=== PATIENT | male | born 1980 | race Caucasian/White ===

== ENCOUNTER 2017-08-25 17:14 | Inpatient (IN) | payer BC ==
[~2017-08-25] VITALS: Ht 180.3 cm; Wt 59.7 kg
[~2017-08-25 17:14] MED LIST: CIPR500T4 PO; HYDR-3533 PO; LACO100 PO; LORA1TAB PO; OXCA300 PO
[2017-08-25 17:17] VITALS: BP 122/64; PULSE 81; RESP 18; TEMP 99.6; O2SAT 98
[2017-08-25] MEDS ORDERED: MANNITOL 12.5 GM/50 ML VIAL IV ONE ×2 (17:30→18:00)
[2017-08-25] MEDS ORDERED: DEXAMETHASONE SOD PHOS 4 MG/ML VIAL IV PUSH ONE (17:30)
[2017-08-25] MEDS ORDERED: SODIUM CHLORIDE 0.9% FLUSH 10 ML FLUSH IV FLUSH PRN ×2 (17:30→18:00)
--- NOTE | 2017-08-25 17:48 | PD ---
HPI . Brain mass Chief Complaint: Neuro Symptoms/ Deficits Time Seen by Provider: 17:22 Travel History International Travel<30 days: No Contact w/Intl Traveler<30days: No Traveled to known affect area: No History of Present Illness HPI This patient was brought to the emergency department by Dr. Workman' regulatory assistant for a brain mass. History is obtained from the patient's parents. The patient had brain cancer in 2003 which was successfully treated with chemotherapy and radiation therapy. His mother reports that he has been cancer free for the last 3-1/2 years. Over the course of the last 6 weeks, he has had progressively worsening symptoms including ataxic gait, slurred speech, right facial droop. He had an MRI done as an out patient on 08/11. The MRI shows a new, large extra-axial mass in the left frontal and middle cranial fossa. The patient was seen by Dr. Workman today for a routine appointment. Dr. Workman sent the patient directly to the emergency department for emergent admission to the [facility] per the water vessel captain. He reports that he will see the patient as a sustainable design consultant. Onset of symptoms was about 6 weeks ago. Progression has been gradual with acute worsening of symptoms over the last several days. No known modifying factors. Context is previous brain cancer. PFSH Past Medical History Anxiety: Yes Depression: Yes Cancer: Yes (h/o melanoma which was removed LEFT UPPER CHEST) Cardiovascular Problems: No Diabetes: No Diminished Hearing: Yes Endocrine: No Genitourinary: No Hepatitis: No Hiatal Hernia: No Immune Disorder: No Musculoskeletal: Yes (two knee surgeries in right knee) Neurologic: Yes (seizures occ in the morning, partial,difficulty with balance ) Psychiatric: No Reproductive: No Respiratory: No Immunizations Current: Yes Seizures: Yes Thyroid Disease: No ?: Not Past Surgical History Abdominal Surgery: No AICD: No Body Medical Devices: plates in place for crani,metal in r leg Cardiac Surgery: No Ear Surgery: No Eye Surgery: No Joint Replacement: No Neurologic Surgery: Yes (crani l) Oral Surgery: No Pacemaker: No Thoracic Surgery: No Other Surgery: Yes (two knee surgeries, melano skin cancer removed) Social History Alcohol Use: No Tobacco Use: Yes (1 ppd) Substance Use: Yes (Marijuana - rarely) Allergies-Medications (Allergen,Severity, Reaction): Coded Allergies: *MDRO Multi-Drug Resistant Organism (Unverified Adverse Reaction, Unknown , 11/27/15) pt states had mrsa infection under arm from work exposed years ago Reported Meds & Prescriptions Reported Meds & Active Scripts Active Cipro (Ciprofloxacin HCl) 500 Mg Tab 500 Mg PO BID 7 Days Lortab 5 mg/325 mg (Hydrocodone/Acetaminophen 5 mg/325 mg) 1 Tab 1 Tab PO Q6H PRN Reported Vimpat (Lacosamide) 100 Mg Tab 100 Mg PO TID Trileptal 300 Mg Tab (Oxcarbazepine) 300 Mg Tab 300 Mg PO DAILY 30 Days Lorazepam 1 Mg Tab 1 Mg PO BID Review of Systems ROS Limitations: Poor Historian Physical Exam Narrative GENERAL: This is a young appearing man who is very thin and who has apparent right-sided facial droop. SKIN: warm/dry. HEAD: Normocephalic. Atraumatic. EYES: Pupils equal and round. No scleral icterus. No injection or drainage. ENT: No nasal bleeding or discharge. Mucous membranes pink and moist. NECK: Trachea midline. Full range of motion without pain.. CARDIOVASCULAR: Regular rate and rhythm. RESPIRATORY: No accessory muscle use. Clear to auscultation. Breath sounds equal bilaterally. MUSCULOSKELETAL: No obvious deformities. NEUROLOGICAL: On visually inspection, he appears to have right-sided facial droop. However, on direct interrogation of his cranial nerves, they are intact. He does have full and equal muscle strength of his upper extremities. Mental status is altered. He is unable to tell me his name. PSYCHIATRIC: Appropriate mood and affect; insight and judgment normal. Data Data Last Documented VS Vital Signs Date Time Temp Pulse Resp B/P (MAP) Pulse Ox O2 Delivery O2 Flow Rate FiO2 08/25/17 17:52 76 18 119/62 (81) 96 Room Air 08/25/17 17:17 99.6 Orders Orders Complete Blood Count With Diff (08/25/17 17:22) Comprehensive Metabolic Panel (08/25/17 17:22) Ct Brain W/O Iv Contrast(Rout) (08/25/17 17:22) Blood Glucose (08/25/17 17:22) Ecg Monitoring (08/25/17 17:22) Iv Access Insert/Monitor (08/25/17 17:22) Oximetry (08/25/17 17:22) Sodium Chloride 0.9% Flush (Ns Flush) (08/25/17 17:30) Mannitol Inj (Mannitol Inj) (08/25/17 17:30) Dexamethasone Inj (Decadron Inj) (08/25/17 17:30) Admit Order (Ed Use Only) (08/25/17 ) Stock Replenisher / Telemetry DIDI.Q8H (08/25/17 17:55) Vital Signs (Adult) Q4H (08/25/17 17:55) Diet Npo (08/25/17 Dinner) Activity Bed Rest (08/25/17 17:55) Notify Dr: Other (08/25/17 17:55) Labs Laboratory Tests Test 08/25/17 17:30 [facility] Medical Decision Making Medical Screen Exam Complete: Yes Emergency Medical Condition: Yes Differential Diagnosis Differential diagnosis of altered mental status includes but is not limited to infection, electrolyte abnormality, neurological event, intoxication Narrative Course This patient presented to us from Dr. Workman office for evaluation and treatment of a new brain mass. He has a history of brain cancer and has been cancer free for the last 3 to half years. He has had progressively worsening symptoms for the last 6 weeks. He had an MRI done at an outside facility a couple of weeks ago and was seen Dr. Workman today for routine follow-up. Dr. Workman solve the MRI report and the patient and sent him immediately to us for treatment. Dr. Workman promptly came to the emergency department and has suggested IV mannitol and Decadron which have been ordered. Dr. Workman would like for the patient to be admitted to the [facility]. Critical Care Narrative Aggregate critical care time was 30 minutes. Time to perform other separately billable procedures was not included in the critical care time. My time did not include minutes spent treating any other patients simultaneously or on activities that did not directly contribute to the patient's treatment. The services I provided to this patient were to treat and/or prevent clinically significant deterioration due to altered mental status, brain tumor I provided critical care services requiring my management, as noted below: Chart data review, documentation time, medication orders and management, vital sign assessments/reviewing monitor data, ordering and reviewing lab tests, ordering and interpreting/reviewing x-rays and diagnostic studies, care of the patient and discussion of the patient with the admitting physicians Diagnosis Primary Impression: Intracranial mass Admitting Information Admitting Physician Requests: Admit Condition: Serious Carola Sutherland MD Aug 25, 2017 17:48
[2017-08-25 17:52] VITALS: BP 119/62; PULSE 74; PULSE 76; RESP 18; O2SAT 94; O2SAT 96
--- NOTE | 2017-08-25 17:53 | RADRPT ---
EXAM DATE/TIME: 08/25/2017 17:26 [place] COMPARISON: CT BRAIN W/O CONTRAST, December 16, 2014, 20:37. INDICATIONS : Altered mental status, history of brain cancer. RADIATION DOSE: 56.35 CTDIvol (mGy) MEDICAL HISTORY : Seizures. brain cancer, melanoma SURGICAL HISTORY : Craniotomy. ENCOUNTER: Initial ACUITY: 1 day PAIN SCALE: 0/10 LOCATION: TECHNIQUE: Multiple contiguous axial images were obtained of the head. Using automated exposure control and adjustment of the mA and/or kV according to patient size, radiation dose was kept as low as reasonably achievable to obtain optimal diagnostic quality images. DICOM format image data is av ailable electronically for review and comparison. FINDINGS: There is a large heterogeneous mass measuring approximately 8.3 x 5.2 cm in the left frontoparietal m id convexity is with prominent associated vasogenic edema primarily anteriorly. There is significant mass effect with effacement of the frontal horn of the left lateral ventricle and approximately 2 cm left to right subfalcine shift. Mass extends inferiorly to the middle cranial fossae with encasement of the left anterior basilar cisterns. Ventricles are enlarged bilaterally likely due to mass effect on the third ventricle. Brain stem and cerebellum appear intact. Extracranial structures are intact. There are postsurgical changes of prior left frontal craniotomy. The paranasal sinuses and mastoid ai r cells are clear. CONCLUSION: 1. Large heterogeneous left frontoparietal mid convexity mass measuring 8.3 x 5.2 cm with significant associated mass effect and resultant hydrocephalus, as above. Luc Mcarthur MD on August 25, 2017 at 17:45 Board Certified Radiologist. This report was verified electronically.
[2017-08-25] MEDS ORDERED: CHLORHEXIDINE GLUCONATE 2 % 1 PACK (2 CLOTHS) TOP PRN (18:00)
[2017-08-25] MEDS: DEXAMETHASONE SOD PHOS 4 MG/ML VIAL IV PUSH SCH ×2 (18:00→23:20)
[2017-08-25] MEDS ORDERED: PANTOPRAZOLE SODIUM 40 MG VIAL IV PUSH SCH (18:00)
[2017-08-25] MEDS ORDERED: MISCELLANEOUS NURSING INFORMATION XX SCH (18:00)
[2017-08-25] MEDS ORDERED: RESP: ALBUTEROL 2.5 MG/IPRATROPIUM 0.5 MG NEB (PRN) INH (18:00)
--- NOTE | 2017-08-25 18:07 | PD.CONS ---
HPI Consult Requested By Primary Care Physician Sami Denis, DO History of Present Illness Mr. Yang is a 37-year-old male with history of a brain mass, status post cranotomy. He was diagnosed with a diffuse astrocytoma, WHO grade 2. He had a surgical resection followed by radiation therapy. He had tonic-clonic seizures. He was followed by an oncologist at the [facility] but he never underwent chemotherapy. Her presented with altered mental status, aphasia, and right-sided weakness. He had an MRI of the brain which show a very large mass with mass-effect and severe midline shift. According to his family he is condition is rapidly deteriorating. CT of the brain was obtained. Neurosurgical consultation was requested Review of Systems Not possible due to the patient's aphasia ROS Limitations: Clinical Condition, Altered Mental Status, Speech Impaired Past Family Social History Allergies: Coded Allergies: *MDRO Multi-Drug Resistant Organism (Unverified Adverse Reaction, Unknown , 08/25/17) pt states had mrsa infection under arm from work exposed years ago Past Medical History 1. Skin cancer removed from left chest. 2. B12 deficiency Past Surgical History 1. Excision of skin cancer from left clavicular area. 2. Right knee arthroscopic surgery, twice. 3, craniotomy with resection of astrocytoma 4. Removal of bone flap for infection Family History Apparently both alive and well, one brother is alive and well. He has 1 child. Social History A smoker of a little bit more than half a pack per day for at least 17 years. Occasional alcohol. Physical Exam Vital Signs Vital Signs Date Time Temp Pulse Resp B/P (MAP) Pulse Ox O2 Delivery O2 Flow Rate FiO2 08/25/17 17:52 76 18 119/62 (81) 96 Room Air 08/25/17 17:52 74 18 119/62 (81) 94 Room Air 08/25/17 17:17 99.6 81 18 122/64 (83) 98 Physical Exam Alert, awake. Expressive aphasia Cranial nerve examination: pupils to be equal, round and reactive to light. Extra-ocular movements are intact. right supranuclear facial drop. Gross hearing appears intact. Sternocleidomastoid and trapezius muscles are symmetrical. Other cranial nerves are intact. Neck is soft and supple with a good range of motion without pain. Muscle strength is normal in all muscle groups of his left upper and lower extremities with mild right hemiparesis. Sensory examination is intact to light touch and pin prick in left upper and lower extremities with mild decrease on the righ Deep tendon reflexes are symmetrical in both upper and lower extremities. There is a left plantar flexion response. Cerebellar examination can not be done due to his condition. Lungs. Clear Heart' regular rhythm and rate Skin warm and dry Laboratory Laboratory Tests Test 08/25/17 17:30 Attending Statement neuro checks every 1 hr. I reviewed outside studies.Ct of the brain done at [place] shows evidence of cerebral herniation Large recurrent brain mass presented with progressive neurological deterioration. Although he was primarily diagnosed with a grade 2 astrocytoma, I suspect progression of the malignancy after the radiation therapy. It could very well be a glioblastoma multiforme. The alternatives of treatment have been diagnosed with the family. I did recommend admission to the hospital, treatment with intravenous steroids and intravenous mannitol. Follow-up MRI of the brain is indicated. A consultation to his neurologist, Dr. Tyler Johnson, oncologist, Dr. Gr and radiation oncologist, Dr. Jimmy chandler for a comprehensive evaluation and discuss regarding treatment possibilities. I believe that his prognosis is really poor and I am not sure how much survival will be achieved with further surgery. I had an extensive discussion with the patient and family. They had many questions which I have answered. Pulmonary.. Continue aggressive pulmonary toilette, nasotracheal suction, and breathing treatments with nebulizers. Renal. monitor closely urine output, BUN and creatinine Endocrine. Monitor serial Acu checks and SSI as needed in detail ID monitor for signs of infection Protonix for stress ulcer prophylaxis Samir ospina and SCD's for DVT prophylaxis Aden Workman MD Aug 25, 2017 18:07
[2017-08-25] MEDS ORDERED: LORA1TAB12 PO (18:08)
[2017-08-25] MEDS ORDERED: OXCA600T PO ×2 (18:08)
[2017-08-25] MEDS ORDERED: LUNE1TAB8 PO (18:08)
[2017-08-25] MEDS ORDERED: ONFI20TA (18:08)
[2017-08-25 18:20] LABS: ALT (GPT) 28 U/L (12-78)
[2017-08-25 18:23] LABS: ALKALINE PHOSPHATASE 99 U/L (45-117); TOTAL BILIRUBIN ADULT 0.5 MG/DL (0.2-1.0); TOTAL PROTEIN 8.7 GM/DL (6.4-8.2)
[2017-08-25 18:25] LABS: AUTOMATED NEUTROPHIL # 7.3 TH/MM3 (1.8-7.7); BASOPHIL % 0.2 % (0.0-2.0); EOSINOPHIL % 0.1 % (0.0-4.0); HEMATOCRIT 45.6 % (39.0-51.0); HEMOGLOBIN 15.7 GM/DL (13.0-17.0); LYMPH % 9.4 % (9.0-44.0); LYMPHOCYTE # 0.8 TH/MM3 (1.0-4.8); MEAN CORPUSCULAR HEMOGLOBIN 31.7 PG (27.0-34.0); MEAN CORPUSCULAR HGB CONC 34.5 % (32.0-36.0); MEAN PLATELET VOLUME 9.2 FL (7.0-11.0); MONO % 3.3 % (0.0-8.0); MONOCYTE # 0.3 TH/MM3 (0-0.9); PLATELET COUNT 183 TH/MM3 (150-450); RED BLOOD COUNT 4.95 MIL/MM3 (4.50-5.90); RED CELL DISTRIBUTION WIDTH 12.9 % (11.6-17.2); WHITE BLOOD COUNT 8.4 TH/MM3 (4.0-11.0)
[2017-08-25 18:28] LABS: ALBUMIN 4.7 GM/DL (3.4-5.0); AST (GOT) 23 U/L (15-37); BICARBONATE 28.2 MEQ/L (21.0-32.0); BLOOD UREA NITROGEN 11 MG/DL (7-18); CALCIUM 9.2 MG/DL (8.5-10.1); CHLORIDE 108 MEQ/L (98-107); CREATININE 0.99 MG/DL (0.60-1.30); GLOMERULAR FILTRATION RATE 85 ML/MIN (>89); GLUCOSE,RANDOM 103 MG/DL (74-106); SODIUM (NA) 142 MEQ/L (136-145)
[2017-08-25 19:56] VITALS: BP 119/70; PULSE 68; RESP 20; O2SAT 100
[2017-08-25 20:00] VITALS: O2SAT 95
[2017-08-25] MEDS ORDERED: LORazepam 1 MG TAB PO PRN (20:30)
[2017-08-25] MEDS: SODIUM CHLOR 0.9% 1000 ML INJ 1,000 ML IV SCH (20:30)
--- NOTE | 2017-08-25 20:32 | HHI.HP ---
[facility] Service Critical Care Medicine Primary Care Physician Sami Denis, DO Admission Diagnosis brain tumor Diagnosis: Travel History International Travel<30 Days: No Contact w/Intl Traveler <30 Da: No Traveled to Known Affected Are: No History of Present Illness 37-year-old unfortunate very pleasant male with history of WHO grade 2 astrocytoma, status post craniotomy by Dr. Workman. He had a surgical resection followed by radiation therapy. He was followed by an oncologist at the [facility] but he never underwent chemotherapy. Over the course of the last 6 weeks , he has had progressively worsening symptoms including ataxic gait, slurred speech, right facial droop. He had an MRI done as an out patient on 08/11. The MRI shows a new, large extra-axial mass in the left frontal and middle cranial fossa. According to his family he is condition is rapidly deteriorating. The patient is admitted to surgical ICU with neurosurgical consultation in place. Review of Systems Constitutional: COMPLAINS OF: Fatigue, Dizziness, DENIES: Diaphoretic episodes , Fever, Weight gain, Weight loss, Chills, Change in appetite, Night Sweats Endocrine: DENIES: Heat/cold intolerance, Polydipsia, Polyuria, Polyphagia Eyes: DENIES: Blurred vision, Diplopia, Eye inflammation, Eye pain, Vision loss , Photosensitivity, Double Vision Ears, nose, mouth, throat: DENIES: Tinnitus, Hearing loss, Vertigo, Nasal discharge, Oral lesions, Throat pain, Hoarseness, Ear Pain, Running Nose, Epistaxis, Sinus Pain, Toothache, Odynophagia Respiratory: DENIES: Apneas, Cough, Snoring, Wheezing, Hemoptysis, Sputum production, Shortness of breath Cardiovascular: DENIES: Chest pain, Palpitations, Syncope, Dyspnea on Exertion , PND, Lower Extremity Edema, Orthopnea, Claudication Gastrointestinal: DENIES: Abdominal pain, Black stools, Bloody stools, Constipation, Diarrhea, Nausea, Vomiting, Difficulty Swallowing, Anorexia Genitourinary: DENIES: Sexual dysfunction, Urinary frequency, Urinary incontinence, Urgency, Hematuria, Dysuria, Nocturia, Penile Discharge, Testicular Pain, Testicular Swelling Musculoskeletal: DENIES: Joint pain, Muscle aches, Stiffness, Joint Swelling, Back pain, Neck pain Integumentary: DENIES: Abnormal pigmentation, Nail changes, Pruritus, Rash Hematologic/lymphatic: DENIES: Bruising, Lymphadenopathy Immunologic/allergic: DENIES: Eczema, Urticaria Neurologic: COMPLAINS OF: Abnormal gait, Headache, Localized weakness, Paresthesias, Speech Problems, Poor Balance, DENIES: Seizures, Tremor Psychiatric: DENIES: Anxiety, Confusion, Mood changes, Depression, Hallucinations, Agitation, Suicidal Ideation, Homicidal Ideation, Delusions Past Family Social History Allergies: Coded Allergies: *MDRO Multi-Drug Resistant Organism (Unverified Adverse Reaction, Unknown , 08/25/17) pt states had mrsa infection under arm from work exposed years ago Past Medical History Skin cancer removed from left chest. B12 deficiency [employer] astrocytoma Past Surgical History Excision of skin cancer from left clavicular area. Right knee arthroscopic surgery, twice. Craniotomy with resection of astrocytoma Removal of bone flap for infection Reported Medications Reported Meds & Active Scripts Active Reported Lunesta (Eszopiclone) 1 Mg Tab 1 Mg PO HS PRN Lorazepam 1 Mg Tab 1 Mg PO Q6H PRN Onfi (Clobazam) 20 Mg Tab 20 Mg BID Oxcarbazepine 600 Mg Tab 900 Mg PO DAILY Oxcarbazepine 600 Mg Tab 600 Mg PO BID Active Ordered Medications Current Medications Sodium Chloride (NS Flush) 2 ml UNSCH PRN IV FLUSH FLUSH AFTER USING IV ACCESS ; Start 08/25/17 at 17:30 Mannitol (Mannitol Inj) 25 gm ONCE ONCE IV Last administered on 08/25/17at 17:50 ; Start 08/25/17 at 17:30; Stop 08/25/17 at 17:31; Status DC Dexamethasone Sodium Phosphate (Decadron Inj) 6 mg ONCE ONCE IV PUSH Last administered on 08/25/17at 17:51; Start 08/25/17 at 17:30; Stop 08/25/17 at 17:31; Status DC Dexamethasone Sodium Phosphate (Decadron Inj) 10 mg Q6HR IV PUSH ; Start at 18:00 Mannitol (Mannitol Inj) 25 gm ONCE ONCE IV ; Start 08/25/17 at 18:00; Stop at 18:09; Status DC Mannitol (Mannitol Inj) 25 gm Q6H IV ; Start 08/25/17 at 22:00 Sodium Chloride (NS Flush) 2 ml UNSCH PRN IV FLUSH FLUSH AFTER USING IV ACCESS ; Start 08/25/17 at 18:00 Sodium Chloride (NS Flush) 2 ml BID IV FLUSH ; Start 08/25/17 at 21:00 Pantoprazole Sodium (Protonix Inj) 40 mg DAILY IV PUSH Last administered on 08/25at 18:00; Start 08/25/17 at 18:00 Albuterol/ Ipratropium (Duoneb Neb) 1 ampule Q4HR NEB PRN INH WHEEZING; Start 08/25/17 at 18:00 Miscellaneous Information 1 [id number] XX ; Start 08/25/17 at 18:00 Chlorhexidine Gluconate (Chlorhexidine 2% Cloth) 3 pack Taper DAILY@04 TOP ; Start 08/26/17 at 04:00; Stop 08/22/18 at 03:59 Chlorhexidine Gluconate (Chlorhexidine 2% Cloth) 3 pack UNSCH PRN TOP HYGIENIC CARE; Start 08/25/17 at 18:00 Family History Apparently both parents alive and well, one brother is alive and well. He has 1 child. Social History A smoker of a little bit more than half a pack per day for at least 17 years. Occasional alcohol. No illicit drug abuse. Physical Exam Vital Signs Vital Signs Date Time Temp Pulse Resp B/P (MAP) Pulse Ox O2 Delivery O2 Flow Rate FiO2 08/25/17 19:56 68 20 119/70 (86) 100 Room Air 08/25/17 17:52 76 18 119/62 (81) 96 Room Air 08/25/17 17:52 74 18 119/62 (81) 94 Room Air 08/25/17 17:17 99.6 81 18 122/64 (83) 98 Physical Exam GENERAL: This is a young appearing man who is very thin and who has apparent right-sided facial droop. SKIN: warm/dry. HEAD: Normocephalic. Atraumatic. EYES: Pupils equal and round. No scleral icterus. No injection or drainage. ENT: No nasal bleeding or discharge. Mucous membranes pink and moist. NECK: Trachea midline. Full range of motion without pain.. CARDIOVASCULAR: Regular rate and rhythm. RESPIRATORY: No accessory muscle use. Clear to auscultation. Breath sounds equal bilaterally. MUSCULOSKELETAL: No obvious deformities. NEUROLOGICAL: Right-sided facial droop. Full and equal muscle strength of his upper extremities. Mental status is altered. Laboratory Laboratory Tests Test 08/25/17 17:30 White Blood Count 8.4 Red Blood Count 4.95 Hemoglobin 15.7 Hematocrit 45.6 Mean Corpuscular Volume 92.0 Mean Corpuscular Hemoglobin 31.7 Mean Corpuscular Hemoglobin Concent 34.5 Red Cell Distribution Width 12.9 Platelet Count 183 Mean Platelet Volume 9.2 Neutrophils (%) (Auto) 87.0 Lymphocytes (%) (Auto) 9.4 Monocytes (%) (Auto) 3.3 Eosinophils (%) (Auto) 0.1 Basophils (%) (Auto) 0.2 Neutrophils # (Auto) 7.3 Lymphocytes # (Auto) 0.8 Monocytes # (Auto) 0.3 Eosinophils # (Auto) 0.0 Basophils # (Auto) 0.0 CBC Comment DIFF FINAL Differential Comment Blood Urea Nitrogen 11 Creatinine 0.99 Random Glucose 103 Total Protein 8.7 Albumin 4.7 Calcium Level 9.2 Alkaline Phosphatase 99 Aspartate Amino Transf (AST/SGOT) 23 Alanine Aminotransferase (ALT/SGPT) 28 Total Bilirubin 0.5 Sodium Level 142 Potassium Level 4.0 Chloride Level 108 Carbon Dioxide Level 28.2 Anion Gap 6 Estimat Glomerular Filtration Rate 85 Result Diagram: 08/25/17 1730 08/25/17 173 Imaging Last [address] 08/25/17 1722 Signed Impressions: Service Date/Time: Friday, August 25, 2017 17:26 - CONCLUSION: 1. Large heterogeneous left frontoparietal mid convexity mass measuring 8.3 x 5.2 cm with significant associated mass effect and resultant hydrocephalus, as above. MD Drew Garcia VTE Risk Assessment Wyattrini VTE Risk Assessment: Mod/High Risk (score >= 2) Caprini Risk Assessment Model Point Value = 1 Point Value = 2 Point Value = 3 Point Value = 5 Age 41-60 Minor surgery BMI > 25 kg/m2 Swollen legs Varicose veins or History of unexplained or recurrent spontaneous Oral contraceptives or hormone replacement Sepsis (< 1 month) Serious lung disease, including pneumonia (< 1 month) Abnormal pulmonary function Acute myocardial infarction Congestive heart failure (< 1 month) History of inflammatory bowel disease Medical patient at bed rest Age 61-74 Arthroscopic surgery Major open surgery (> 45 min) Laparoscopic surgery (> 45 min) Malignancy Confined to bed (> 72 hours) Immobilizing plaster cast Central venous access Age >= 75 History of VTE Family history of VTE Factor V Leiden Prothrombin [id number] Lupus anticoagulant Anticardiolipin antibodies Elevated serum homocysteine Heparin-induced thrombocytopenia Other congenital or acquired thrombophilia Stroke (< 1 month) Elective arthroplasty Hip, pelvis, or leg fracture Acute spinal cord injury (< 1 month) Prophylaxis Regimen Total Risk Factor Score Risk Level Prophylaxis Regimen 0-1 Low Early ambulation 2 Moderate Order ONE of the following: *Sequential Compression Device (SCD) *Heparin 5000 units SQ BID 3-4 Higher Order ONE of the following medications: *Heparin 5000 units SQ TID *Enoxaparin/Lovenox 40 mg SQ daily (WT < 150 kg, CrCl > 30 mL/min) *Enoxaparin/Lovenox 30 mg SQ daily (WT < 150 kg, CrCl > 10-29 mL/min) *Enoxaparin/Lovenox 30 mg SQ BID (WT < 150 kg, CrCl > 30 mL/min) AND/OR *Sequential Compression Device (SCD) 5 or more Highest Order ONE of the following medications: *Heparin 5000 units SQ TID (Preferred with Epidurals) *Enoxaparin/Lovenox 40 mg SQ daily (WT < 150 kg, CrCl > 30 mL/min) *Enoxaparin/Lovenox 30 mg SQ daily (WT < 150 kg, CrCl > 10-29 mL/min) *Enoxaparin/Lovenox 30 mg SQ BID (WT < 150 kg, CrCl > 30 mL/min) AND *Sequential Compression Device (SCD) Assessment and Plan Assessment and Plan Large recurrent brain mass -primarily diagnosed with a grade 2 astrocytoma -Now progression of the malignancy most likely glioblastoma multiforme -Decadron -Mannitol -Further management per neurosurgery Dr. Workman, neurologist, Dr. Tyler Johnson, oncologist, Dr. Gr and radiation oncologist, Dr. Marquez Seizure disorder -Trileptal -Clobazam Anxiety -Lorazepam as needed Insomnia -Lunesta DVT GI prophylaxis -Samir's and SCDs -Lovenox -Pepcid Critical Care: The total critical care time was 35 minutes. Time to perform other separately billable procedures was not included in the critical care time. Aureliano Owusu MD Aug 25, 2017 8:32 pm
[2017-08-25] MEDS ORDERED: ACETAMINOPHEN 500 MG CPLT PO PRN (20:45)
[2017-08-25] MEDS ORDERED: ENOXAPARIN SODIUM 40 MG/0.4 ML SYRINGE SQ SCH (21:00)
[2017-08-25] MEDS ORDERED: CLOBAZAM 20 MG SCH (21:00)
[2017-08-25] MEDS: SODIUM CHLORIDE 0.9% FLUSH 10 ML FLUSH IV FLUSH SCH (21:00)
[2017-08-25] MEDS ORDERED: CLOBAZAM 20 MG PO SCH (21:00)
[2017-08-25 21:09] VITALS: BP 115/62; PULSE 69; RESP 20; O2SAT 98
[2017-08-25] MEDS ORDERED: PILL SPLITTER OTHER PRN (21:15)
[2017-08-25] MEDS: CHLORHEXIDINE GLUCONATE 2 % 1 PACK (2 CLOTHS) TOP SCH (21:49)
[2017-08-25] MEDS: MANNITOL 12.5 GM/50 ML VIAL IV SCH (22:39)
[2017-08-25] MEDS: OXcarbazepine 600 MG TAB PO SCH (22:40)
[2017-08-25 23:00] VITALS: PULSE 72
[2017-08-26] VITALS (10 sets, daily range): BP systolic 94–114; BP diastolic 51–69; PULSE 52–70; RESP 18–33; TEMP 98.4–99; O2SAT 96–100
[2017-08-26] MEDS: MANNITOL 12.5 GM/50 ML VIAL IV SCH ×4 (03:33→21:55)
[2017-08-26 03:49] LABS: AUTOMATED NEUTROPHIL # 6.4 TH/MM3 (1.8-7.7); BASOPHIL % 0.2 % (0.0-2.0); HEMOGLOBIN 14.4 GM/DL (13.0-17.0); LYMPH % 11.5 % (9.0-44.0); LYMPHOCYTE # 0.8 TH/MM3 (1.0-4.8); MEAN CORPUSCULAR HEMOGLOBIN 31.5 PG (27.0-34.0); MEAN CORPUSCULAR HGB CONC 34.2 % (32.0-36.0); MEAN PLATELET VOLUME 8.8 FL (7.0-11.0); MONO % 1.8 % (0.0-8.0); MONOCYTE # 0.1 TH/MM3 (0-0.9); NEUT % 86.5 % (16.0-70.0); PLATELET COUNT 161 TH/MM3 (150-450); RED BLOOD COUNT 4.57 MIL/MM3 (4.50-5.90); WHITE BLOOD COUNT 7.4 TH/MM3 (4.0-11.0)
[2017-08-26] MEDS: SODIUM CHLOR 0.9% 1000 ML INJ 1,000 ML IV SCH ×3 (04:30→20:30)
[2017-08-26 04:32] LABS: ALKALINE PHOSPHATASE 90 U/L (45-117); ALT (GPT) 27 U/L (12-78); AST (GOT) 16 U/L (15-37); BICARBONATE 24.6 MEQ/L (21.0-32.0); BLOOD UREA NITROGEN 11 MG/DL (7-18); CALCIUM 8.9 MG/DL (8.5-10.1); CHLORIDE 108 MEQ/L (98-107); CREATININE 0.81 MG/DL (0.60-1.30); GLOMERULAR FILTRATION RATE 107 ML/MIN (>89); GLUCOSE,RANDOM 109 MG/DL (74-106); SODIUM (NA) 142 MEQ/L (136-145); TOTAL BILIRUBIN ADULT 0.6 MG/DL (0.2-1.0); TOTAL PROTEIN 7.7 GM/DL (6.4-8.2)
[2017-08-26] MEDS: DEXAMETHASONE SOD PHOS 4 MG/ML VIAL IV PUSH SCH ×3 (06:20→18:14)
--- NOTE | 2017-08-26 07:49 | HHI.CCPN ---
Subjective Remarks/Hospital Course 37-year-old unfortunate very pleasant male with history of WHO grade 2 astrocytoma, status post craniotomy by Dr. Workman. He had a surgical resection followed by radiation therapy. He was followed by an oncologist at the [facility] but he never underwent chemotherapy. Over the course of the last 6 weeks , he has had progressively worsening symptoms including ataxic gait, slurred speech, right facial droop. He had an MRI done as an out patient on 08/11. The MRI shows a new, large extra-axial mass in the left frontal and middle cranial fossa. According to his family he is condition is rapidly deteriorating. The patient is admitted to surgical ICU with neurosurgical consultation in place. SUBJ 08/26: Lying in bed, breathing comfortably. Persistent right facial droop. Currently receiving IV mannitol, IV Decadron. Mentation is altered, I have ordered EEG. Neurology neurosurgery following. Discussed with oncology Dr. Gr Objective Vital Signs Date Time Temp Pulse Resp B/P (MAP) Pulse Ox O2 Delivery O2 Flow Rate FiO2 08/26/17 07:45 100 08/26/17 04:00 98.6 58 29 105/59 (74) 08/25/17 21:09 Room Air Intake and Output 08/26/17 08/26/17 08/27/17 08:00 16:00 00:00 Intake Total 100 ml Balance 100 ml Result Diagram: 08/26/17 0330 08/26/17 0330 Imaging Last [address] 08/25/17 1722 Signed Impressions: Service Date/Time: Friday, August 25, 2017 17:26 - CONCLUSION: 1. Large heterogeneous left frontoparietal mid convexity mass measuring 8.3 x 5.2 cm with significant associated mass effect and resultant hydrocephalus, as above. Luc Mcarthur MD Objective Remarks GENERAL: This is a young appearing man who is very thin and right-sided facial droop. SKIN: warm/dry. HEAD: Normocephalic. Atraumatic. EYES: Pupils equal and round. No scleral icterus. No injection or drainage. ENT: No nasal bleeding or discharge. R facial droop. NECK: Trachea midline. Full range of motion without pain.. CARDIOVASCULAR: Regular rate and rhythm. RESPIRATORY: No accessory muscle use. Clear to auscultation. Breath sounds equal bilaterally. MUSCULOSKELETAL: No obvious deformities. NEUROLOGICAL: Right-sided facial droop. Full and equal muscle strength of his upper extremities. Mental status is altered, some expressive and receptive aphasia. 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 Workman, neurologist, Dr. Tyler Johnson, oncologist, Dr. Gr and radiation oncologist, Dr. Marquez -Overall prognosis is poor, will discuss debulking surgery with Dr. Workman Seizure disorder -Continue Trileptal, Clobazam -Check EEG -Ativan as needed for seizure Anxiety -Lorazepam as needed Insomnia -Lunesta DVT GI prophylaxis -Samir's and SCDs -Lovenox-hold in anticipation of surgical intervention -Pepcid Critical Care: The total critical care time was 35 minutes. Time to perform other separately billable procedures was not included in the critical care time. Patient is at this time critically ill with very large intracranial mass, he is at risk for fatal herniation. Further multidisciplinary treatment plan is being discussed. Most likely will need debulking surgery Shweta Zuleta MD Aug 26, 2017 07:49
--- NOTE | 2017-08-26 08:15 | PD.CONS ---
History of Present Illness Service Neurology Consult Requested By nsx Reason for Consult brain mass, confusion Primary Care Physician Sami Denis, DO History of Present Illness 37-year-old unfortunate very pleasant male with history of WHO grade 2 astrocytoma, status post craniotomy by Dr. Workman. He had a surgical resection followed by radiation therapy. He was followed by an oncologist at the [facility] per records. has had progressive decline over the past few weeks with possible sz activity. pt has been confused and is a poor historian. hx obtained from chart review. was initially seen in 2013 by nsx and oncology. and has been followed by them since then. underwent partial resection followed by xrt tx. on trileptal and clobazam for sz's. Review of Systems confused. but denies hawkins, vision loss. not reliable Past Family Social History Allergies: Coded Allergies: *MDRO Multi-Drug Resistant Organism (Unverified Adverse Reaction, Unknown , 08/25/17) pt states had mrsa infection under arm from work exposed years ago Past Medical History Skin cancer removed from left chest. B12 deficiency BIT SHARPENER astrocytoma Past Surgical History Excision of skin cancer from left clavicular area. Right knee arthroscopic surgery, twice. Craniotomy with resection of astrocytoma Removal of bone flap for infection Reported Medications Reported Meds & Active Scripts Active Reported Lunesta (Eszopiclone) 1 Mg Tab 1 Mg PO HS PRN Lorazepam 1 Mg Tab 1 Mg PO Q6H PRN Onfi (Clobazam) 20 Mg Tab 20 Mg BID Oxcarbazepine 600 Mg Tab 900 Mg PO DAILY Oxcarbazepine 600 Mg Tab 600 Mg PO BID Family History lives with parents Social History hx of tob use. Occasional alcohol. No illicit drug abuse. Review of Systems All other ROS: ROS reviewed as documented in chart Past Family Social History Allergies: Coded Allergies: *MDRO Multi-Drug Resistant Organism (Unverified Adverse Reaction, Unknown , 08/25/17) pt states had mrsa infection under arm from work exposed years ago Active Ordered Medications Current Medications Medications (Trade) Dose Ordered Sig/Raghav Route Start Time Stop Time Status Last Admin (Decadron Inj) 10 mg Q6HR IV PUSH 08/25/17 18:00 08/26/17 06:20 (Mannitol Inj) 25 gm Q6H IV 08/25/17 22:00 08/26/17 03:33 (NS Flush) 2 ml UNSCH PRN IV FLUSH 08/25/17 18:00 (NS Flush) 2 ml BID IV FLUSH 08/25/17 21:00 (Protonix Inj) 40 mg DAILY IV PUSH 08/25/17 18:00 08/25/17 18:00 (Duoneb Neb) 1 ampule Q4HR NEB PRN INH 08/25/17 18:00 Miscellaneous Information 1 Q361D XX 08/25/17 18:00 (Chlorhexidine 2% Cloth) 3 pack Taper DAILY@04 TOP 08/26/17 04:00 08/22/18 03:59 (Chlorhexidine 2% Cloth) 3 pack UNSCH PRN TOP 08/25/17 18:00 (Lunesta) 1 mg HS PRN PO 08/25/17 21:00 (Ativan) 1 mg Q6H PRN PO 08/25/17 20:30 (Trileptal) 600 mg BID@1500,2100 PO 08/25/17 21:00 08/25/17 22:40 (Trileptal) 900 mg DAILY PO 08/26/17 09:00 Sodium Chloride 1,000 ml @ 125 mls/hr Q8H IV 08/25/17 20:30 08/25/17 20:30 (Lovenox Inj) 40 mg Q24H SQ 08/25/17 21:00 Future Hold 08/25/17 22:40 (Dilaudid Pf Inj) 0.5 mg Q4H PRN IV 08/25/17 20:45 (Tylenol) 500 mg Q4H PRN PO 08/25/17 20:45 (Pill Splitter) 1 ea UNSCH PRN OTHER 08/25/17 21:15 Patient Own Medication PT OWN NARC MED: CLOBAZAM(ON... BID PO 08/26/17 09:00 Exam I&O / VS Vital Signs Date Time Temp Pulse Resp B/P (MAP) Pulse Ox O2 Delivery O2 Flow Rate FiO2 08/26/17 07:45 100 08/26/17 04:00 98.6 58 29 105/59 (74) 97 08/26/17 00:00 99.0 70 23 94/51 (65) 96 08/25/17 23:00 72 08/25/17 21:09 69 20 115/62 (79) 98 Room Air 08/25/17 20:00 95 08/25/17 19:56 68 20 119/70 (86) 100 Room Air 08/25/17 17:52 76 18 119/62 (81) 96 Room Air 08/25/17 17:52 74 18 119/62 (81) 94 Room Air 08/25/17 17:17 99.6 81 18 122/64 (83) 98 Exam Comments alert, mixed aphasia comprehensive> expressive aphasia, not following consistently, strange affect, eomi, mild rt spastic hemiparesis. limited sensory /cereebellar exams Review/Management Diagnosis/Plan: (1) Seizures ICD Codes: R56.9 - Seizures Status: Chronic Plan: no fever. no leukocytosis. no significant abnormalities on bmp f/u eeg check trileptal level enlarging mass can cause sz's. tx for this would be steroids/debulking. he has been started on high dose iv steroids tx of brain mass per onc/nsx d/w ccm follow exam (2) Astrocytoma brain tumor ICD Codes: C71.9 - Astrocytoma brain tumor Status: Chronic Plan: large left hemispheric mass with mass effect nsx following (3) Intracranial mass ICD Codes: R90.0 - Intracranial mass Status: Chronic Khari Bills MD Aug 26, 2017 08:15
[2017-08-26] MEDS: SODIUM CHLORIDE 0.9% FLUSH 10 ML FLUSH IV FLUSH SCH ×2 (09:32→21:54)
[2017-08-26] MEDS: CLOBAZAM 20 MG PO SCH ×2 (09:32→21:00)
[2017-08-26] MEDS: PANTOPRAZOLE SOD 40 MG DELAYED RELEASE TAB PO SCH (09:33)
[2017-08-26] MEDS: OXcarbazepine 600 MG TAB PO SCH ×3 (09:33→21:54)
--- NOTE | 2017-08-26 10:11 | PD.CONS ---
Consult Service Palliative Care Consult Requested By Dr. Zuleta Primary Care Physician Sami Denis, Reason for Consultation a. To assist with evaluation and management of symptoms including:pain, confusion. b. To assist medical decision maker(s) with: better understanding of current medical conditions; weighing benefits/burdens of medical treatment options; making medical treatment decisions. HPI History of Present Illness Patient is a 37-year-old who has a 2014, history of grade 2 astrocytoma diagnosed in 2013, status post surgical resection and radiation therapy. Patient's mother reports that patient had been cancer free for 3-1/2 years, however for the past 6 weeks patient has had worsening symptoms including ataxic gait, slurred speech, right facial droop. Patient had an MRI done as an outpatient on 08/11/2017 which shows a new large extra-axial mass in the left frontal middle cranial fossa. Patient was a neurosurgeon office, and was told to directly go to the emergency department for emergent admission. Patient was admitted to surgical ICU for 08/25/2017 and neurosurgery consult was placed. * Vitals temperature 99.6, pulse is 81, respirations 18, blood pressure is 122/ 64, pulse ox is 98% * WBC 8.4, hemoglobin 15.7, hematocrit is 45.6, platelet is 183 * Sodium is 142, potassium is 4.0, chloride is 108, bicarb is 20.2, BUN is 11, creatinine 0.99 * AST is 23, ALT is 28, alk phos is 99, total protein is 8.4, albumin is 4.7 * Admission shows a large heterogeneous left frontoparietal mid convexity mass measuring 8.3 x 5.2 cm with significant associated mass-effect and resultant hydrocephalus. Neurosurgery evaluated patient and recommend intravenous steroids, intravenous mannitol. Follow up MR I of the brain is indicated. He plays consultation with Dr. Johnson neurologist, Dr. Guerrero oncology, Dr. Bowen radiation oncology, to discuss possibility of treatment. However Dr. Workman believe that patient's prognosis is poor and his H&P from 08/25/2017 indicated "I believe that his prognosis is really poor and I am not sure how much survival will be achieved with further surgery." 08/26/2017-scrap shear operator indicated the patient is lying in bed breathing comfortably with persistent right facial droop. Patient continued to receive IV mannitol and IV Decadron. His mentation is altered and an EEG is ordered. Is suspected that patient's grade 2 astrocytoma has progressed to likely glioblastoma multi-forming. Palliative care was consulted by intensive care to review goals of care with family. Pt had just performed EEG. He is confused, and aphasic. At times able to follow some commands, at other times look at me with a very strangely. Words that he said, make no sense most of the time. Have difficulty answering yes or no answers. He was able to deny pain. I am not able to elicit response to nausea or vomiting. Spoke with pt's Mom Yeni Yang ( who is primary health care surrogate) and Pt' s father Jan Bell (pt's alternate surrogate). Review his clinical condition form 2013, and the dramatic decline he has had the past 6 weeks. Mother is appropriately tearful. Mom has some questions regarding, if they could to ventriculostomy drain, or shunt to relief pressure? They want to know if he is a candidate for further radiation or chemo? I have reviewed with mom the poor prognosis indicated by neurosurgeon and the concern that surgical procedure will more than likely not alter his survival. Mom understands. We review his living will. Mom said, if specilist feels that there is nothing beneficial to offer in terms of treatment, pt per living will would be amenable to transfer to comfort measures. Reviewed code status: for the time being, no intubation, amenable to bipap; Yes to cpr/ acls/ shock until they get their questions answered, if heart decompensates. Function/Cognitive Trajectory past 6 weeks patient has had worsening symptoms including ataxic gait, slurred speech, right facial droop, worsening confusion, ataxia, maybe some difficulty swallowing. Per mom, this all happened in a span of 6 weeks. He has fallen twice, one time while trying to find car keys and he slipped. Review of Systems ROS Limitations: Clinical Condition Past Family Social History Coded Allergies: *MDRO Multi-Drug Resistant Organism (Unverified Adverse Reaction, Unknown , 08/25/17) pt states had mrsa infection under arm from work exposed years ago Past Medical History B12 deficiency Skin cancer removed from left chest Past Surgical History Status post craniotomy and radiation for grade 2 astrocytoma Excision of skin cancer from left clavicular area Right knee arthroscopic surgery 2 Reported Medications Clobazam 20 mg PO BID Oxcarbazepine 600 mg p.o. twice daily Oxcarbazepine 900 mg p.o. daily Ativan 1 mg p.o. every 6 hours as needed anxiety Neulasta 1 mg p.o. nightly as needed insomnia Current Medications Medications (Trade) Dose Ordered Sig/Raghav Route Start Time Stop Time Status Last Admin (Decadron Inj) 10 mg Q6HR IV PUSH 08/25/17 18:00 08/26/17 06:20 (Mannitol Inj) 25 gm Q6H IV 08/25/17 22:00 08/26/17 09:34 (NS Flush) 2 ml UNSCH PRN IV FLUSH 08/25/17 18:00 (NS Flush) 2 ml BID IV FLUSH 08/25/17 21:00 08/26/17 09:32 (Duoneb Neb) 1 ampule Q4HR NEB PRN INH 08/25/17 18:00 Miscellaneous Information 1 Q361D XX 08/25/17 18:00 (Chlorhexidine 2% Cloth) 3 pack Taper DAILY@04 TOP 08/26/17 04:00 08/22/18 03:59 (Chlorhexidine 2% Cloth) 3 pack UNSCH PRN TOP 08/25/17 18:00 (Lunesta) 1 mg HS PRN PO 08/25/17 21:00 (Ativan) 1 mg Q6H PRN PO 08/25/17 20:30 (Trileptal) 600 mg BID@1500,2100 PO 08/25/17 21:00 08/25/17 22:40 (Trileptal) 900 mg DAILY PO 08/26/17 09:00 08/26/17 09:33 Sodium Chloride 1,000 ml @ 125 mls/hr Q8H IV 08/25/17 20:30 08/25/17 20:30 (Lovenox Inj) 40 mg Q24H SQ 08/25/17 21:00 Future Hold 08/25/17 22:40 (Dilaudid Pf Inj) 0.5 mg Q4H PRN IV 08/25/17 20:45 (Tylenol) 500 mg Q4H PRN PO 08/25/17 20:45 (Pill Splitter) 1 ea UNSCH PRN OTHER 08/25/17 21:15 Patient Own Medication PT OWN NARC MED: CLOBAZAM(ON... BID PO 08/26/17 09:00 08/26/17 09:32 (Protonix) 40 mg DAILY PO 08/26/17 09:00 08/26/17 09:33 Family History Both parents are alive and well. He has one brother who is alive and well. 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 He is not , but has a significant other. He has a 1 year old son named Joseph. He has a mother and father are his primary and 2nd health care surrogate. 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 He had a brother who commited suicide in 2013. Living Will: Copy in medical record Health Care Surrogate(s): Primary HCS. Yeni Yang( mother) has clinical background, was a production floater, then worked in medical records. Secondary HCS. Jan Yang( father) electrician radio [employer] Yang next down the [facility] HCS: Brother. Documented care wishes: Standard workding for living will. " If at any time I should be diagnosed in writing to be in a terminal condition by the attending physician where the application of life-sustaining treatment would serve only to artificially prolong the process of dying, I direct that such treatment be withheld or withdrawn, and that I be permitted to naturally. Physical Exam Vital Signs Date Time Temp Pulse Resp B/P (MAP) Pulse Ox O2 Delivery O2 Flow Rate FiO2 08/26/17 07:45 100 08/26/17 04:00 98.6 58 29 105/59 (74) 97 08/26/17 00:00 99.0 70 23 94/51 (65) 96 08/25/17 23:00 72 08/25/17 21:09 69 20 115/62 (79) 98 Room Air 08/25/17 20:00 95 08/25/17 19:56 68 20 119/70 (86) 100 Room Air 08/25/17 17:52 76 18 119/62 (81) 96 Room Air 08/25/17 17:52 74 18 119/62 (81) 94 Room Air 08/25/17 17:17 99.6 81 18 122/64 (83) 98 Exam CONSTITUTIONAL/GENERAL: This is an adequately nourished patient, thin, confused. TUBES/LINES/DRAINS: SKIN: No jaundice, rashes, or lesions. Ecchymoses on upper extremities. No wounds seen anteriorly. Skin temperature appropriate. Not diaphoretic. HEAD: Atraumatic. Normocephalic. EYES: Pupils equal and round and reactive. Extraocular motions intact. No scleral icterus. No injection or drainage. Fundi not examined. ENT: Hearing grossly normal. Nose without bleeding or purulent drainage. Throat without visible erythema, exudates, masses, or lesions. NECK: Trachea midline. Supple, nontender. No palpable thyroid enlargement or nodularity. CARDIOVASCULAR: Regular rate and rhythm without murmurs, gallops, or rubs. No JVD. Peripheral pulses symmetric. RESPIRATORY/CHEST: Symmetric, unlabored respirations. Clear to auscultation. Breath sounds equal bilaterally. No wheezes, rales, or rhonchi. GASTROINTESTINAL: Abdomen soft, non-tender, nondistended. No hepato-splenomegaly , or palpable masses. No guarding. Bowel sounds present. GENITOURINARY: Without palpable bladder distension. Bond catheter in place. MUSCULOSKELETAL: Extremities without clubbing, cyanosis, or edema. No joint tenderness or effusion noted. No calf tenderness. No mottling or clubbing. LYMPHATICS: No palpable cervical or supraclavicular adenopathy. NEUROLOGICAL: Awake and alert. Confused, has aphasia, could not consistently follow commands. Moves all extremities. PSYCHIATRIC: Anxious Diagnostic Tests Laboratory Laboratory Tests Test 08/25/17 17:30 08/26/17 03:30 White Blood Count 8.4 TH/MM3 (4.0-11.0) 7.4 TH/MM3 (4.0-11.0) Red Blood Count 4.95 MIL/MM3 (4.50-5.90) 4.57 MIL/MM3 (4.50-5.90) Hemoglobin 15.7 GM/DL (13.0-17.0) 14.4 GM/DL (13.0-17.0) Hematocrit 45.6 % (39.0-51.0) 42.0 % (39.0-51.0) Mean Corpuscular Volume 92.0 FL (80.0-100.0) 92.0 FL (80.0-100.0) Mean Corpuscular Hemoglobin 31.7 PG (27.0-34.0) 31.5 PG (27.0-34.0) Mean Corpuscular Hemoglobin Concent 34.5 % (32.0-36.0) 34.2 % (32.0-36.0) Red Cell Distribution Width 12.9 % (11.6-17.2) 13.0 % (11.6-17.2) Platelet Count 183 TH/MM3 (150-450) 161 TH/MM3 (150-450) Mean Platelet Volume 9.2 FL (7.0-11.0) 8.8 FL (7.0-11.0) Neutrophils (%) (Auto) 87.0 % (16.0-70.0) 86.5 % (16.0-70.0) Lymphocytes (%) (Auto) 9.4 % (9.0-44.0) 11.5 % (9.0-44.0) Monocytes (%) (Auto) 3.3 % (0.0-8.0) 1.8 % (0.0-8.0) Eosinophils (%) (Auto) 0.1 % (0.0-4.0) 0.0 % (0.0-4.0) Basophils (%) (Auto) 0.2 % (0.0-2.0) 0.2 % (0.0-2.0) Neutrophils # (Auto) 7.3 TH/MM3 (1.8-7.7) 6.4 TH/MM3 (1.8-7.7) Lymphocytes # (Auto) 0.8 TH/MM3 (1.0-4.8) 0.8 TH/MM3 (1.0-4.8) Monocytes # (Auto) 0.3 TH/MM3 (0-0.9) 0.1 TH/MM3 (0-0.9) Eosinophils # (Auto) 0.0 TH/MM3 (0-0.4) 0.0 TH/MM3 (0-0.4) Basophils # (Auto) 0.0 TH/MM3 (0-0.2) 0.0 TH/MM3 (0-0.2) CBC Comment DIFF FINAL DIFF FINAL Differential Comment Blood Urea Nitrogen 11 MG/DL (7-18) 11 MG/DL (7-18) Creatinine 0.99 MG/DL (0.60-1.30) 0.81 MG/DL (0.60-1.30) Random Glucose 103 MG/DL (74-106) 109 MG/DL (74-106) Total Protein 8.7 GM/DL (6.4-8.2) 7.7 GM/DL (6.4-8.2) Albumin 4.7 GM/DL (3.4-5.0) 4.0 GM/DL (3.4-5.0) Calcium Level 9.2 MG/DL (8.5-10.1) 8.9 MG/DL (8.5-10.1) Alkaline Phosphatase 99 U/L (45-117) 90 U/L (45-117) Aspartate Amino Transf (AST/SGOT) 23 U/L (15-37) 16 U/L (15-37) Alanine Aminotransferase (ALT/SGPT) 28 U/L (12-78) 27 U/L (12-78) Total Bilirubin 0.5 MG/DL (0.2-1.0) 0.6 MG/DL (0.2-1.0) Sodium Level 142 MEQ/L (136-145) 142 MEQ/L (136-145) Potassium Level 4.0 MEQ/L (3.5-5.1) 4.4 MEQ/L (3.5-5.1) Chloride Level 108 MEQ/L (98-107) 108 MEQ/L (98-107) Carbon Dioxide Level 28.2 MEQ/L (21.0-32.0) 24.6 MEQ/L (21.0-32.0) Anion Gap 6 MEQ/L (5-15) 9 MEQ/L (5-15) Estimat Glomerular Filtration Rate 85 ML/MIN (>89) 107 ML/MIN (>89) Result Diagram: 08/26/17 0330 08/26/17 0330 Imaging Last Impressions Head CT 08/25/17 1722 Signed Impressions: Service Date/Time: Friday, August 25, 2017 17:26 - CONCLUSION: 1. Large heterogeneous left frontoparietal mid convexity mass measuring 8.3 x 5.2 cm with significant associated mass effect and resultant hydrocephalus, as above. Luc Mcarthur MD Patient/Family Conference Present at Family Conference: Pt's father and mother. Family Conference Location: Other (pt mariah, family declined conference room.) Issues Discussed: * Palliative care role, purpose, approach * Additional medical, psychosocial, and spiritual history * Patients general health, functional status, and cognitive changes in the months leading up to the current hospitalization * Patient/family understanding of the current medical problems * Patient/family understanding of prognosis * Patients goals of care as best understood from advance directives and/or conversations and/or values * Current medical treatment options and benefits/burdens of those options * Likely scenarios comparing ongoing aggressive care with a transition to comfort measures only * Questions answered to the best of my ability * Palliative care contact information provided Assessment and Plan Disease Oriented Problem List: (1) Intracranial mass (2) Seizures Symptom Scale: Pertinent Non-Medical Issues Psychosocial: Spiritual: Legal: Ethical issues impacting care: Important Contacts Yeni Yang [phone] Jan Yang [phone]. Prognosis 37 year old with large intracranial mass. Neurosurgeon noted "I believe that his prognosis is really poor and I am not sure how much survival will be achieved with further surgery." Code Status: Alternative Code Plan == capacity- pt does not have capacity to make medical condition, and given the large intracranial mass, it is not likely he will regain capacity to make medical decisions. He is confused, could not follow commands consistently. == Decision maker. Living will completed by pt. Pt's mother Yeni Yang is primary health care surrogate. Father is alternate health care surrogate. == Code: Alternate code. For now. No intubation, but: yes to bipap. Yes to cpr/acls/compressions/shock. == symptom: but does not appears to be in pain, although there is that potential. Confusion is 2nd to cancer burden. No furter rec med, continue steroids, manitol. == goals of care:Spoke with pt's Mom Yeni Yang ( who is primary health care surrogate) and Pt's father Jan Bell (pt's alternate surrogate). Review his clinical condition form 2013, and the dramatic decline he has had the past 6 weeks. Mother is appropriately tearful. Mom has some questions regarding, if they could to ventriculostomy drain, or shunt to relief pressure? They want to know if he is a candidate for further radiation or chemo? I have reviewed with mom the poor prognosis indicated by neurosurgeon and the concern that surgical procedure will more than likely not alter his survival. Mom understands. We review his living will. Mom said, if specialist feels that there is nothing beneficial to offer in terms of treatment, pt per living will would be amenable to transfer to comfort measures, and family would support that. Thank you for the opportunity to participate in the care of Mr. Yang. Attestation To help prompt me to consider important information that might be impacting today's encounter and assessment, information from prior notes written by myself or my colleagues may have been "brought forward" into today's note. My signature on this note, however, is an attestation that I personally performed the exam, history, and/or decision-making noted today, and, unless otherwise indicated, the interactions with patient, family, and staff as well as the review of records all occurred today. I also attest that the listed assessment and stated plan reflect my best clinical judgment today based on the combination of historical information, prior notes, and today's exam/ interactions. When time spent is documented, it refers only to time spent today by the signer, or if indicated, combined time spent today by collaborating physician/nurse practitioner. Kash Mullen MD Aug 26, 2017 10:11
--- NOTE | 2017-08-26 12:21 | RC ---
cc: Jimmy Bowen MD DATE OF SERVICE: HISTORY OF PRESENT ILLNESS: Mr. Yang is a 37-year-old male who has a history of glioma. He received radiation therapy in the past to the left frontoparietal area 54 Gy. Treatment completed 09/2014. Initial biopsy obtained 04/[address] 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 He completed radiation therapy. He has been seen by neural oncologist as well at the time to consider radiosensitizing chemotherapy. He did not pursue any systemic therapy at that time. Recently some neurocognitive decline. A recent MRI demonstrates disease progression, hydrocephalus as well. Date of service was 08/25/2017. I met with his mother and father in the emergency room. We discussed we did not recommend additional radiation therapy. Unclear if any expected improvement of symptoms with surgery either, did not recommend a surgical resection as well. Unclear if he would benefit from chemotherapy as well. He will be admitted to the ICU. His family pursued with best supportive care. I discussed this case with Dr. Workman and we agreed with no recommended intervention such as radiation or surgery and likely no role for chemotherapy either. PLAN: We will followup. Did place a call to his mother today as well at [phone]. Jimmy Bowen MD BAF/TL , 11:32 AM , 12:20 PM
[2017-08-26] MEDS ORDERED: GADODIAMIDE PF 287 MG/ML 5 ML VIAL (for RAD MRI) IVCONTRAST ONE (12:43)
--- NOTE | 2017-08-26 14:05 | MG ---
cc: Khari Bills MD DATE OF STUDY: 08/26/2017 EEG RECORD NUMBER: [id number] INDICATION: A 37-year-old history of left hemispheric mass, seizure activity, confusion. DESCRIPTION: High frequency activity with asymmetric left hemispheric slowing. Sharp activity noted in the left frontal region. Sharpish activity right frontal central region as well. Phase reversal of the left frontal region occurring. Single EKG showing sinus rhythm. Left frontal region could be breach rhythm as well. INTERPRETATION: Asymmetric left hemispheric slowing. Mild potential cortical irritability noted in that region, although no active seizure activity. Clinical correlation. Khari Bills MD MG/KD , 01:38 PM , 02:04 PM
--- NOTE | 2017-08-26 16:02 | RADRPT ---
EXAM DATE/TIME: 08/26/2017 12:16 [facility] COMPARISON: No previous studies available for comparison. INDICATIONS : Altered mental status. Slurred speech, unsteady gait. CONTRAST: 11 cc Omniscan (gadodiamide) IV MEDICAL HISTORY : brain cancer SURGICAL HISTORY : brain surgery, knee surgery ENCOUNTER: Subsequent ACUITY: 2 day PAIN SCORE: 2/10 LOCATION: cranial TECHNIQUE: Multiplanar, multisequence MRI of the brain was performed both prior to and following the administrat ion of paramagnetic contrast. FINDINGS: There is a massive 7.2 x 6.5 cm mass centered in the left frontotemporal region with 1.9 cm of midlin e shift and subfalcine herniation as well as uncal herniation. The mass demonstrates features charact eristic of glioblastoma with central necrosis and heterogeneous enhancement. This totally encases the supraclinoid carotid artery as well as the middle cerebral artery. There is vasogenic edema in the l eft orbitofrontal region. Posterior fossa structures are unremarkable. CONCLUSION: 1. 7.2 cm left frontotemporal mass with findings of subfalcine and uncal herniation characteristic of glioblastoma. The findings were discussed with Dr. Workman at the time of dictation Jon Aly MD on August 26, 2017 at 15:54 Board Certified Radiologist. This report was verified electronically.
--- NOTE | 2017-08-26 16:49 | HHI.NSPN ---
Note Status Status: Progress Note Interval History Interval History Mr. Yang is a 37-year-old male with history of a brain mass, status post cranotomy. He was diagnosed with a diffuse astrocytoma, WHO grade 2. He had a surgical resection followed by radiation therapy. He had tonic-clonic seizures. He was followed by an oncologist at the [facility] but he never underwent chemotherapy. Her presented with altered mental status, aphasia, and right-sided weakness. He had an MRI of the brain which show a very large mass with mass-effect and severe midline shift. According to his family he is condition is rapidly deteriorating. CT of the brain was obtained. Neurosurgical consultation was requested 08/26. Alert, awake, aphasic. Comfortable. MRI brain was done Labs, Micro, & Vital Signs Results Date Time Temp Pulse Resp B/P (MAP) Pulse Ox O2 Delivery O2 Flow Rate FiO2 08/26/17 15:00 53 08/26/17 12:00 98.5 66 28 100/55 (70) 98 08/26/17 08:00 98.4 54 18 114/51 (72) 98 08/26/17 07:45 100 08/26/17 07:00 54 08/26/17 07:00 94 Room Air 08/26/17 04:00 98.6 58 29 105/59 (74) 97 08/26/17 00:00 99.0 70 23 94/51 (65) 96 08/25/17 23:00 72 08/25/17 21:09 69 20 115/62 (79) 98 Room Air 08/25/17 20:00 95 08/25/17 19:56 68 20 119/70 (86) 100 Room Air 08/25/17 17:52 76 18 119/62 (81) 96 Room Air 08/25/17 17:52 74 18 119/62 (81) 94 Room Air 08/25/17 17:17 99.6 81 18 122/64 (83) 98 Constitutional Vital Signs Date Time Temp Pulse Resp B/P (MAP) Pulse Ox O2 Delivery O2 Flow Rate FiO2 08/26/17 15:00 53 08/26/17 12:00 98.5 66 28 100/55 (70) 98 08/26/17 08:00 98.4 54 18 114/51 (72) 98 08/26/17 07:45 100 08/26/17 07:00 54 08/26/17 07:00 94 Room Air 08/26/17 04:00 98.6 58 29 105/59 (74) 97 08/26/17 00:00 99.0 70 23 94/51 (65) 96 08/25/17 23:00 72 08/25/17 21:09 69 20 115/62 (79) 98 Room Air 08/25/17 20:00 95 08/25/17 19:56 68 20 119/70 (86) 100 Room Air 08/25/17 17:52 76 18 119/62 (81) 96 Room Air 08/25/17 17:52 74 18 119/62 (81) 94 Room Air 08/25/17 17:17 99.6 81 18 122/64 (83) 98 Physical Exam Mr Yang is alert, awake. Expressive aphasia Cranial nerve examination: pupils to be equal, round and reactive to light. Extra-ocular movements are intact. right supranuclear facial drop. Gross hearing appears intact. Sternocleidomastoid and trapezius muscles are symmetrical. Other cranial nerves are intact. Neck is soft and supple with a good range of motion without pain. Muscle strength is normal in all muscle groups of both upper and lower extremities. Sensory examination is intact to light touch and pin prick in both the upper and lower extremities. Deep tendon reflexes are symmetrical in both upper and lower extremities. There is a bilateral plantar flexion response. Cerebellar examination is unremarkable, without deficits. Lungs. Clear Heart' regular rhythm and rate Skin warm and dry Medications Current Medications Current Medications Sodium Chloride (NS Flush) 2 ml UNSCH PRN IV FLUSH FLUSH AFTER USING IV ACCESS ; Start 08/25/17 at 17:30; Stop 08/25/17 at 21:13; Status DC Mannitol (Mannitol Inj) 25 gm ONCE ONCE IV Last administered on 08/25/17at 17:50 ; Start 08/25/17 at 17:30; Stop 08/25/17 at 17:31; Status DC Dexamethasone Sodium Phosphate (Decadron Inj) 6 mg ONCE ONCE IV PUSH Last administered on 08/25/17at 17:51; Start 08/25/17 at 17:30; Stop 08/25/17 at 17:31; Status DC Dexamethasone Sodium Phosphate (Decadron Inj) 10 mg Q6HR IV PUSH Last administered on 08/26/17at 13:17; Start 08/25/17 at 18:00 Mannitol (Mannitol Inj) 25 gm ONCE ONCE IV ; Start 08/25/17 at 18:00; Stop at 18:09; Status DC Mannitol (Mannitol Inj) 25 gm Q6H IV Last administered on 08/26/17at 16:33; Start 08/25/17 at 22:00 Sodium Chloride (NS Flush) 2 ml UNSCH PRN IV FLUSH FLUSH AFTER USING IV ACCESS ; Start 08/25/17 at 18:00 Sodium Chloride (NS Flush) 2 ml BID IV FLUSH Last administered on 08/26/17at 09: 32; Start 08/25/17 at 21:00 Pantoprazole Sodium (Protonix Inj) 40 mg DAILY IV PUSH Last administered on 08/25at 18:00; Start 08/25/17 at 18:00; Stop 08/26/17 at 08:35; Status DC Albuterol/ Ipratropium (Duoneb Neb) 1 ampule Q4HR NEB PRN INH WHEEZING; Start 08/25/17 at 18:00 Miscellaneous Information 1 Q361D XX ; Start 08/25/17 at 18:00 Chlorhexidine Gluconate (Chlorhexidine 2% Cloth) 3 pack Taper DAILY@04 TOP ; Start 08/26/17 at 04:00; Stop 08/22/18 at 03:59 Chlorhexidine Gluconate (Chlorhexidine 2% Cloth) 3 pack UNSCH PRN TOP HYGIENIC CARE; Start 08/25/17 at 18:00 Eszopiclone (Lunesta) 1 mg HS PRN PO INSOMNIA; Start 08/25/17 at 21:00 Lorazepam (Ativan) 1 mg Q6H PRN PO ANXIETY Last administered on 08/26/17at 16:33 ; Start 08/25/17 at 20:30 Oxcarbazepine (Trileptal) 600 mg BID@1500,2100 PO Last administered on 16:33; Start 08/25/17 at 21:00 Oxcarbazepine (Trileptal) 900 mg DAILY PO Last administered on 08/26/17at 09:33 ; Start 08/26/17 at 09:00 Non-Formulary Medication 20 mg BID .ROUTE ; Start 08/25/17 at 21:00; Status UNV Sodium Chloride 1,000 ml @ 125 mls/hr Q8H IV Last administered on 08/26/17at 07 :00; Start 08/25/17 at 20:30 Enoxaparin Sodium (Lovenox Inj) 40 mg Q24H SQ Last administered on 08/25/17at 22: 40; Start 08/25/17 at 21:00; Status Future Hold Hydromorphone HCl (Dilaudid Pf Inj) 0.5 mg Q4H PRN IV PAIN 6 TO 10; Start at 20:45 Acetaminophen (Tylenol) 500 mg Q4H PRN PO fever or pain 1-5; Start 08/25/17 at 20:45 Patient Own Medication PT OWN MED: CLOBAZAM(ONFI) 20 MG PO BID BID PO ; Start at 21:00; Stop 08/26/17 at 01:56; Status DC Miscellaneous (Pill Splitter) 1 ea UNSCH PRN OTHER SEE LABEL COMMENTS; Start at 21:15 Patient Own Medication PT OWN NARC MED: CLOBAZAM(ON... BID PO Last administered on 08/26/17at 09:32; Start 08/26/17 at 09:00 Pantoprazole Sodium (Protonix) 40 mg DAILY PO Last administered on 08/26/17at 09 :33; Start 08/26/17 at 09:00 Gadodiamide (Omniscan Pf Inj) 11 ml STK-MED ONCE IVCONTRAST Last administered on 08/26/17at 12:43; Start 08/26/17 at 12:43; Stop 08/26/17 at 12:44; Status DC Attending Statement Continue neuro checks every 1 hr, Decadron and Mannitol. Rapid progressive neurological deterioration. I reviewed his MRI. Consistent with progression of the malignancy after the radiation therapy and likely glioblastoma multiforme. The alternatives of treatment have been diagnosed with the family. I discussed it with his neurologist, Dr. Tyler Johnson, oncologist, Dr. Gr and radiation oncologist, Dr. Jimmy factor. His prognosis is very poor and likely not to survive much longer, even with surgery I believe that his prognosis is really poor and I am not sure how much survival will be achieved with further surgery. I had an extensive discussion with the patient's family, and I suggest paliative care consultation and the alternative of hospice care has been discussed . They had many questions which I have answered. Pulmonary.. Continue aggressive pulmonary toilette, nasotracheal suction, and breathing treatments with nebulizers. Renal. monitor closely urine output, BUN and creatinine Endocrine. Monitor serial Acu checks and SSI as needed in detail ID monitor for signs of infection Protonix for stress ulcer prophylaxis Samir ospina and SCD's for DVT prophylaxis Aden Workman MD Aug 26, 2017 16:49
--- NOTE | 2017-08-26 17:47 | MB ---
cc: Dylan Gr MD, Boon Y MD DATE: 08/26/2017 REFERRING PHYSICIAN: Dr. Workman REASON FOR CONSULTATION: Oncology is consulted to render an opinion regarding patient with astrocytoma admitted with seizure. HISTORY OF PRESENT ILLNESS: Mr. Yang is a 37-year-old male diagnosed with astrocytoma grade 2 the end of 03/2014. At that time, he was found to have 7.2 cm mass in the left temporal lobe. He had a craniotomy and partial resection of the mass. Pathology showed astrocytoma grade 2. He went to [facility] for further evaluation. He eventually received radiation to the left frontoparietal area completed in 09/2014. He, however, did not pursue chemotherapy. When I saw him, he was not able to answer any questions, He had significant aphasia. He re-presented with a seizure. According to family members, the patient has deteriorated rather rapidly. He had a CT of the head done which showed a large left frontoparietal mass that measured 8.3 cm. The patient is aphasic. He denies significant headache. He denies any diplopia. He denies any chest pain, denies shortness of breath. Denies any nausea, vomiting, abdominal pain. PAST MEDICAL HISTORY: 1. Astrocytoma grade 2. 2. Seizure disorder. 3. Skin cancer. 4. B12 deficiency. PAST SURGICAL HISTORY: 1. Craniotomy with resection of astrocytoma. 2. Excisional skin cancer, left clavicle. 3. Right knee arthroscopic surgery. 4. Removal of bone flap due to infection. FAMILY HISTORY: He has 1 brother and a child. No family history of a brain tumor. SOCIAL HISTORY: Smoked half a pack a day for about 17. Occasional alcohol. ALLERGIES: NO KNOWN DRUG ALLERGIES MEDICATIONS: 1. Trileptal. 2. Protonix. 3. Mannitol 4. Decadron. REVIEW OF SYSTEMS: CONSTITUTIONAL: Increased weakness and decreased performance status. ENT: Negative. EYES: Negative. CARDIOVASCULAR: Negative. RESPIRATORY: Negative. GASTROINTESTINAL: Negative. GENITOURINARY: Negative. MUSCULOSKELETAL: Denies any pain. HEMATOLOGIC: Negative. DERMATOLOGIC: Negative. PSYCHIATRIC: Negative. NEUROLOGIC: As above. PHYSICAL EXAMINATION: VITAL SIGNS: Temperature 98.5, blood pressure 100/55, O2 saturation 98%. GENERAL: He is awake. He is aphasic. He is not oriented to place. HEENT: Atraumatic, normocephalic. Pupils are equal, round, reactive to light. Oropharynx: Dry mucosa. No lesion. NECK: No thyromegaly. No palpable mass. LYMPHATIC: No palpable cervical, clavicular, axillary lymph nodes. CARDIOVASCULAR: Regular S1, S2, no murmur. LUNGS: Clear to auscultation bilaterally. No wheezing or rhonchi. ABDOMEN: Soft, nontender. Could not palpate liver or spleen. EXTREMITIES: No cyanosis or clubbing. No edema, no calf tenderness. BACK: No paravertebral tenderness. SKIN: No rash or petechiae. NEUROLOGIC: He is aphasic, slightly weak on the right side. IMPRESSION: 1. Astrocytoma, grade 2 now presented with increased brain mass. He first presented the end of 2013 with seizure and found to have a large left frontoparietal lobe mass. He had a partial resection which showed astrocytoma grade 2. At that time, no IDH study or 1p/19q study was done yet. He went to [facility] for evaluation. He later saw Dr. Bowen and received radiation. He did not pursue concurrent radiosensitizing chemotherapy. It is unclear when was the last time he went to [facility] for followup. He now re-presented with seizure. CT of the head showed a large 8.3 x 5.2 cm mass in the left frontoparietal area with significant mass effect. There is left to right shift of about 2 cm with hydrocephalus. The patient is aphasic. According to the family, he has declined quite rapidly. I have discussed the case with Dr. Workman. Dr. Workman does not believe that the patient is going to benefit with surgical resection. He likely will have worsening neurologic function after the resection. The patient has also been evaluated by Dr. Bowen and he is not a candidate for further radiation either. The patient has a large tumor with significant mass effect. His overall prognosis is very poor. I am going to try to get medical records from [facility] and to get more information regarding the tumor pathology. If he has IDH1 mutation, tumor tends to be more aggressive. Overall prognosis is poor. I do not think he is going to tolerate chemotherapy and I am not sure how much he would benefit from further chemotherapy. I agree with getting palliative care medicine involved to discuss best supportive care. 2. History of skin cancer. PLAN: 1. We will get medical record from [facility]. 2. Discussed case with Dr. Workman. 3. I agree with consulting palliative care and I think the patient is a candidate for hospice care. Thank you, Dr. Workman, for asking me to see this patient. MD VIRGIL Johnson//glenis , 04:17 PM , 05:33 PM SARAH
[2017-08-26] MEDS: ESZOPICLONE 1 MG TAB PO PRN (21:54)
[2017-08-27] VITALS (8 sets, daily range): BP systolic 54–119; BP diastolic 56–62; PULSE 52–70; RESP 18–24; TEMP 98.2–98.7; O2SAT 94–100
[2017-08-27] MEDS: DEXAMETHASONE SOD PHOS 4 MG/ML VIAL IV PUSH SCH ×5 (02:33→22:43)
[2017-08-27] MEDS: CHLORHEXIDINE GLUCONATE 2 % 1 PACK (2 CLOTHS) TOP SCH (04:00)
[2017-08-27] MEDS: SODIUM CHLOR 0.9% 1000 ML INJ 1,000 ML IV SCH ×3 (04:30→17:38)
[2017-08-27] MEDS: MANNITOL 12.5 GM/50 ML VIAL IV SCH ×4 (05:46→22:42)
--- NOTE | 2017-08-27 08:10 | HHI.PR ---
Review/Management Diagnosis/Plan: (1) Seizures ICD Codes: R56.9 - Seizures Status: Chronic Plan: no fever. no leukocytosis. no significant abnormalities on bmp recs eeg- no active sz seen by onc consideration of hospice (2) Astrocytoma brain tumor ICD Codes: C71.9 - Astrocytoma brain tumor Status: Chronic Plan: large left hemispheric mass with mass effect nsx following (3) Intracranial mass ICD Codes: R90.0 - Intracranial mass Status: Chronic Subjective Subjective Comments No acute events reported No headache no sz Active Medications Current Medications Medications (Trade) Dose Ordered Sig/Raghav Route Start Time Stop Time Status Last Admin (Decadron Inj) 10 mg Q6HR IV PUSH 08/25/17 18:00 08/27/17 05:48 (Mannitol Inj) 25 gm Q6H IV 08/25/17 22:00 08/27/17 05:46 (NS Flush) 2 ml UNSCH PRN IV FLUSH 08/25/17 18:00 (NS Flush) 2 ml BID IV FLUSH 08/25/17 21:00 08/26/17 21:54 (Duoneb Neb) 1 ampule Q4HR NEB PRN INH 08/25/17 18:00 Miscellaneous Information 1 Q361D XX 08/25/17 18:00 (Chlorhexidine 2% Cloth) 3 pack Taper DAILY@04 TOP 08/26/17 04:00 08/22/18 03:59 (Chlorhexidine 2% Cloth) 3 pack UNSCH PRN TOP 08/25/17 18:00 (Lunesta) 1 mg HS PRN PO 08/25/17 21:00 08/26/17 21:54 (Ativan) 1 mg Q6H PRN PO 08/25/17 20:30 08/26/17 16:33 (Trileptal) 600 mg BID@1500,2100 PO 08/25/17 21:00 08/26/17 21:54 (Trileptal) 900 mg DAILY PO 08/26/17 09:00 08/26/17 09:33 Sodium Chloride 1,000 ml @ 125 mls/hr Q8H IV 08/25/17 20:30 08/27/17 04:30 (Lovenox Inj) 40 mg Q24H SQ 08/25/17 21:00 Future Hold 08/25/17 22:40 (Dilaudid Pf Inj) 0.5 mg Q4H PRN IV 08/25/17 20:45 (Tylenol) 500 mg Q4H PRN PO 08/25/17 20:45 (Pill Splitter) 1 ea UNSCH PRN OTHER 08/25/17 21:15 Patient Own Medication PT OWN NARC MED: CLOBAZAM(ON... BID PO 08/26/17 09:00 08/26/17 21:00 (Protonix) 40 mg DAILY PO 08/26/17 09:00 08/26/17 09:33 Allergies Allergies Coded Allergies *MDRO Multi-Drug Resistant Organism (Unverified Adverse Reaction, Unknown, 08/25) Review of Systems All other ROS: ROS reviewed as documented in chart Exam I&O / VS Vital Signs Date Time Temp Pulse Resp B/P (MAP) Pulse Ox O2 Delivery O2 Flow Rate FiO2 08/27/17 04:00 98.4 52 22 102/57 (72) 96 08/27/17 00:00 98.2 52 22 106/57 (73) 96 08/26/17 23:00 52 08/26/17 20:00 98.5 66 19 109/63 (78) 98 08/26/17 19:00 96 Room Air 08/26/17 18:00 98.4 54 33 114/69 (84) 100 08/26/17 15:00 53 08/26/17 12:00 98.5 66 28 100/55 (70) 98 Exam Comments alert, mixed aphasia comprehensive> expressive aphasia, not following consistently, strange affect, eomi, mild rt spastic hemiparesis. limited sensory /cereebellar exams Objective Micro and Labs Laboratory Tests Test 08/26/17 11:30 Khari Bills MD Aug 27, 2017 08:10
[2017-08-27] MEDS: PANTOPRAZOLE SOD 40 MG DELAYED RELEASE TAB PO SCH (08:11)
[2017-08-27] MEDS: OXcarbazepine 600 MG TAB PO SCH ×3 (08:12→20:04)
[2017-08-27] MEDS: SODIUM CHLORIDE 0.9% FLUSH 10 ML FLUSH IV FLUSH SCH ×2 (08:12→20:04)
[2017-08-27] MEDS: CLOBAZAM 20 MG PO SCH ×2 (08:12→20:04)
--- NOTE | 2017-08-27 09:51 | HHI.HCPN ---
Reason for visit a. To assist with evaluation and management of symptoms including:pain, confusion. b. To assist medical decision maker(s) with: better understanding of current medical conditions; weighing benefits/burdens of medical treatment options; making medical treatment decisions. Subjective/Interval History EEG performed yesterday did not show any seizure activity. Dr. Bowen from Rad Onc pt is not a candidate for radiation. Dr. Gr noted that pt would tolerate chemotherapy and "agree with consulting palliative care and pt is a candidate for hospice." I spoke with Dr. Workman today. I told him that mom has a question about putting a shunt in to relief pressure. Dr. Workman state he will discuss with pt's mother, but that may be a possiblity. He did say it may by some time, and relief some symptom, but will not affect is survival. Pt today remains confused, has word salad. continue to be a fall risk. Family/friend interactions Family is here, and I have informed them that Dr. Workman will speak to them today. In terms of procedure such as a shunt, which family did inquire, mother did not want to proceed through the procedure. Mother said she spoke with Dr. Johnson yesterday, and she will speak with Dr. Workman, but overall they are leaning towards comfort measures only. They are amenable to hospice consultation to get some questions answered. Advance Directives Living Will: Copy in medical record Advance Directive Specifics Health Care Surrogate(s): Primary HCS. 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 Secondary HCS. Jan Yang( father) locomotive electrician Song Yang next [facility] HCS: Brother. Documented care wishes: Standard workding for living will. " If at any time I should be diagnosed in writing to be in a terminal condition by the attending physician where the application of life-sustaining treatment would serve only to artificially prolong the process of dying, I direct that such treatment be withheld or withdrawn, and that I be permitted to naturally. Objective Vital Signs Date Time Temp Pulse Resp B/P (MAP) Pulse Ox O2 Delivery O2 Flow Rate FiO2 08/27/17 04:00 98.4 52 22 102/57 (72) 96 08/27/17 00:00 98.2 52 22 106/57 (73) 96 08/26/17 23:00 52 08/26/17 20:00 98.5 66 19 109/63 (78) 98 08/26/17 19:00 96 Room Air 08/26/17 18:00 98.4 54 33 114/69 (84) 100 08/26/17 15:00 53 08/26/17 12:00 98.5 66 28 100/55 (70) 98 Intake & Output 08/27/17 08/27/17 07:00 19:00 Output Total 600 ml Balance -600 ml Output Urine Total 600 ml Stool Total 0 ml Physical Exam CONSTITUTIONAL/GENERAL: This is an adequately nourished patient, thin, confused. SKIN: No jaundice, rashes, or lesions. Ecchymoses on upper extremities. No wounds seen anteriorly. Skin temperature appropriate. Not diaphoretic. HEAD: Atraumatic. Normocephalic. EYES: Pupils equal and round and reactive. Extraocular motions intact. No scleral icterus. No injection or drainage. Fundi not examined. ENT: Hearing grossly normal. Nose without bleeding or purulent drainage. Throat without visible erythema, exudates, masses, or lesions. NECK: Trachea midline. Supple, nontender. No palpable thyroid enlargement or nodularity. CARDIOVASCULAR: Regular rate and rhythm without murmurs, gallops, or rubs. No JVD. Peripheral pulses symmetric. RESPIRATORY/CHEST: Symmetric, unlabored respirations. Clear to auscultation. Breath sounds equal bilaterally. No wheezes, rales, or rhonchi. GASTROINTESTINAL: Abdomen soft, non-tender, nondistended. No hepato-splenomegaly , or palpable masses. No guarding. Bowel sounds present. GENITOURINARY: Without palpable bladder distension. Bond catheter in place. MUSCULOSKELETAL: Extremities without clubbing, cyanosis, or edema. No joint tenderness or effusion noted. No calf tenderness. No mottling or clubbing. LYMPHATICS: No palpable cervical or supraclavicular adenopathy. NEUROLOGICAL: Awake and alert. Confused, has aphasia, could not consistently follow commands. Moves all extremities. PSYCHIATRIC: Anxious Diagnostic Tests Laboratory Laboratory Tests Test 08/25/17 17:30 08/26/17 03:30 08/26/17 11:30 White Blood Count 8.4 TH/MM3 (4.0-11.0) 7.4 TH/MM3 (4.0-11.0) Red Blood Count 4.95 MIL/MM3 (4.50-5.90) 4.57 MIL/MM3 (4.50-5.90) Hemoglobin 15.7 GM/DL (13.0-17.0) 14.4 GM/DL (13.0-17.0) Hematocrit 45.6 % (39.0-51.0) 42.0 % (39.0-51.0) Mean Corpuscular Volume 92.0 FL (80.0-100.0) 92.0 FL (80.0-100.0) Mean Corpuscular Hemoglobin 31.7 PG (27.0-34.0) 31.5 PG (27.0-34.0) Mean Corpuscular Hemoglobin Concent 34.5 % (32.0-36.0) 34.2 % (32.0-36.0) Red Cell Distribution Width 12.9 % (11.6-17.2) 13.0 % (11.6-17.2) Platelet Count 183 TH/MM3 (150-450) 161 TH/MM3 (150-450) Mean Platelet Volume 9.2 FL (7.0-11.0) 8.8 FL (7.0-11.0) Neutrophils (%) (Auto) 87.0 % (16.0-70.0) 86.5 % (16.0-70.0) Lymphocytes (%) (Auto) 9.4 % (9.0-44.0) 11.5 % (9.0-44.0) Monocytes (%) (Auto) 3.3 % (0.0-8.0) 1.8 % (0.0-8.0) Eosinophils (%) (Auto) 0.1 % (0.0-4.0) 0.0 % (0.0-4.0) Basophils (%) (Auto) 0.2 % (0.0-2.0) 0.2 % (0.0-2.0) Neutrophils # (Auto) 7.3 TH/MM3 (1.8-7.7) 6.4 TH/MM3 (1.8-7.7) Lymphocytes # (Auto) 0.8 TH/MM3 (1.0-4.8) 0.8 TH/MM3 (1.0-4.8) Monocytes # (Auto) 0.3 TH/MM3 (0-0.9) 0.1 TH/MM3 (0-0.9) Eosinophils # (Auto) 0.0 TH/MM3 (0-0.4) 0.0 TH/MM3 (0-0.4) Basophils # (Auto) 0.0 TH/MM3 (0-0.2) 0.0 TH/MM3 (0-0.2) CBC Comment DIFF FINAL DIFF FINAL Differential Comment Blood Urea Nitrogen 11 MG/DL (7-18) 11 MG/DL (7-18) Creatinine 0.99 MG/DL (0.60-1.30) 0.81 MG/DL (0.60-1.30) Random Glucose 103 MG/DL (74-106) 109 MG/DL (74-106) Total Protein 8.7 GM/DL (6.4-8.2) 7.7 GM/DL (6.4-8.2) Albumin 4.7 GM/DL (3.4-5.0) 4.0 GM/DL (3.4-5.0) Calcium Level 9.2 MG/DL (8.5-10.1) 8.9 MG/DL (8.5-10.1) Alkaline Phosphatase 99 U/L (45-117) 90 U/L (45-117) Aspartate Amino Transf (AST/SGOT) 23 U/L (15-37) 16 U/L (15-37) Alanine Aminotransferase (ALT/SGPT) 28 U/L (12-78) 27 U/L (12-78) Total Bilirubin 0.5 MG/DL (0.2-1.0) 0.6 MG/DL (0.2-1.0) Sodium Level 142 MEQ/L (136-145) 142 MEQ/L (136-145) Potassium Level 4.0 MEQ/L (3.5-5.1) 4.4 MEQ/L (3.5-5.1) Chloride Level 108 MEQ/L (98-107) 108 MEQ/L (98-107) Carbon Dioxide Level 28.2 MEQ/L (21.0-32.0) 24.6 MEQ/L (21.0-32.0) Anion Gap 6 MEQ/L (5-15) 9 MEQ/L (5-15) Estimat Glomerular Filtration Rate 85 ML/MIN (>89) 107 ML/MIN (>89) Result Diagram: 08/26/1732908/26/17329 Assessment and Plan Disease Oriented Problem List: (1) Intracranial mass (2) Seizures Symptom Scale: Pertinent Non-Medical Issues Psychosocial: Spiritual: Legal: Ethical issues impacting care: Important Contacts Yeni Yang [phone] Jan Yang [phone]. Prognosis 37 year old with large intracranial mass. Neurosurgeon noted "I believe that his prognosis is really poor and I am not sure how much survival will be achieved with further surgery." All other specialist including oncology, and radiation oncology agree prognosis is poor. Code Status: Alternative Code Plan == capacity- pt does not have capacity to make medical condition, and given the large intracranial mass, it is not likely he will regain capacity to make medical decisions. He is confused, could not follow commands consistently. == Decision maker. Living will completed by pt. Pt's mother Yeni Yang is primary health care surrogate. Father is alternate health care surrogate. == Code: Alternate code. For now. No intubation, but: yes to bipap. Yes to cpr/acls/compressions/shock. == symptom: but does not appears to be in pain, although there is that potential. Confusion is 2nd to cancer burden. No furter rec med, continue steroids, manitol. == goals of care: Dr. Bowen from Rad Onc noted pt is not a candidate for radiation. Dr. Gr noted that pt would tolerate chemotherapy and "agree with consulting palliative care and pt is a candidate for hospice." I spoke with Dr. Workman today. I told him that mom has a question about putting a shunt in to relief pressure. Dr. Workman state he will discuss with pt's mother. In talking to pt's mother and father who is primary & alternate surrogate : She endorse with me today, even if that was an option, she does not want to put him through another surgical procedure. She is amenable to meet with hospice today to find out more information. I did review with family about how hospice does not use restraints, and that if he does get agitated, they would give something to calm his agitation, but may be sedating. They understand that. Attestation To help prompt me to consider important information that might be impacting today's encounter and assessment, information from prior notes written by myself or my colleagues may have been "brought forward" into today's note. My signature on this note, however, is an attestation that I personally performed the exam, history, and/or decision-making noted today, and, unless otherwise indicated, the interactions with patient, family, and staff as well as the review of records all occurred today. I also attest that the listed assessment and stated plan reflect my best clinical judgment today based on the combination of historical information, prior notes, and today's exam/ interactions. When time spent is documented, it refers only to time spent today by the signer, or if indicated, combined time spent today by collaborating physician/nurse practitioner. Kash Mullen MD Aug 27, 2017 09:51
--- NOTE | 2017-08-27 11:36 | HHI.CCPN ---
Subjective Remarks/Hospital Course 37-year-old unfortunate very pleasant male with history of WHO grade 2 astrocytoma, status post craniotomy by Dr. Workman. He had a surgical resection followed by radiation therapy. He was followed by an oncologist at the [facility] but he never underwent chemotherapy. Over the course of the last 6 weeks , he has had progressively worsening symptoms including ataxic gait, slurred speech, right facial droop. He had an MRI done as an out patient on 08/11. The MRI shows a new, large extra-axial mass in the left frontal and middle cranial fossa. According to his family he is condition is rapidly deteriorating. The patient is admitted to surgical ICU with neurosurgical consultation in place. SUBJ 08/26: Lying in bed, breathing comfortably. Persistent right facial droop. Currently receiving IV mannitol, IV Decadron. Mentation is altered, I have ordered EEG. Neurology neurosurgery following. Discussed with oncology Dr. Gr 08/27: Lying in bed appears comfortable, no further treatment options can be provided. Palliative care following family also request more information about hospice. D/W Dr. Workman and Dr. Mullen. I agree with transition to Hospice Objective Vital Signs Date Time Temp Pulse Resp B/P (MAP) Pulse Ox O2 Delivery O2 Flow Rate FiO2 08/27/17 08:00 70 08/27/17 08:00 98.2 18 119/58 (78) 100 08/27/17 08:00 Room Air Intake and Output 08/27/17 08/27/17 08/27/17 07:59 15:59 23:59 Output Total 600 ml Balance -600 ml Result Diagram: 08/26/17 0330 08/26/17 0330 Imaging Last [address] 08/25/17 1722 Signed Impressions: Service Date/Time: Friday, August 25, 2017 17:26 - CONCLUSION: 1. Large heterogeneous left frontoparietal mid convexity mass measuring 8.3 x 5.2 cm with significant associated mass effect and resultant hydrocephalus, as above. Luc Mcarthur MD Objective Remarks GENERAL: This is a young appearing man who is very thin with right-sided facial droop. SKIN: warm/dry. HEAD: Normocephalic. Atraumatic. EYES: Pupils equal and round. No scleral icterus. No injection or drainage. ENT: No nasal bleeding or discharge. R facial droop. NECK: Trachea midline. Full range of motion without pain.. CARDIOVASCULAR: Regular rate and rhythm. RESPIRATORY: No accessory muscle use. Clear to auscultation. Breath sounds equal bilaterally. MUSCULOSKELETAL: No obvious deformities. NEUROLOGICAL: Right-sided facial droop. Full and equal muscle strength of his upper extremities. 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 Workman, Dr. Johnson, oncologist, Dr. Gr and radiation oncologist, Dr. Bowen -Overall prognosis is poor, no treatment can be offered at this time -Family meeting with Hospice today Seizure disorder -Continue Trileptal, Clobazam -Ativan as needed for seizure Anxiety -Lorazepam as needed Insomnia -Lunesta DVT GI prophylaxis -Samir's and SCDs -Lovenox-hold due to very large intracranial tumor -Pepcid Critical Care: Level 2. Shweta Zuleta MD Aug 27, 2017 11:36
--- NOTE | 2017-08-27 13:43 | PD.ONC.PN ---
Subjective Subjective Remarks Afebrile overnight. Patient resting in bed in nad. Objective Data Date Time Temp Pulse Resp B/P (MAP) Pulse Ox O2 Delivery O2 Flow Rate FiO2 08/27/17 12:00 98.4 60 20 54/ 94 08/27/17 08:00 70 08/27/17 08:00 98.2 70 18 119/58 (78) 100 08/27/17 08:00 100 Room Air 08/27/17 04:00 98.4 52 22 102/57 (72) 96 08/27/17 00:00 98.2 52 22 106/57 (73) 96 08/26/17 23:00 52 08/26/17 20:00 98.5 66 19 109/63 (78) 98 08/26/17 19:00 96 Room Air 08/26/17 18:00 98.4 54 33 114/69 (84) 100 08/26/17 15:00 53 08/27/17 08/27/17 08/27/17 07:00 15:00 23:00 Output Total 600 ml Balance -600 ml Result Diagram: 08/26/17 0330 08/26/17 0330 Administered Medications Medications (Trade) Dose Ordered Sig/Raghav Route PRN Reason Start Time Stop Time Status Last Admin Dose Admin Dexamethasone Sodium Phosphate (Decadron Inj) 10 mg Q6HR IV PUSH 08/25/17 18:00 08/27/17 12:10 Mannitol (Mannitol Inj) 25 gm Q6H IV 08/25/17 22:00 08/27/17 08:13 Sodium Chloride (NS Flush) 2 ml BID IV FLUSH 08/25/17 21:00 08/27/17 08:12 Eszopiclone (Lunesta) 1 mg HS PRN PO INSOMNIA 08/25/17 21:00 08/26/17 21:54 Lorazepam (Ativan) 1 mg Q6H PRN PO ANXIETY 08/25/17 20:30 08/26/17 16:33 Oxcarbazepine (Trileptal) 600 mg BID@1500,2100 PO 08/25/17 21:00 08/26/17 21:54 Oxcarbazepine (Trileptal) 900 mg DAILY PO 08/26/17 09:00 08/27/17 08:12 Sodium Chloride 1,000 ml @ 125 mls/hr Q8H IV 08/25/17 20:30 08/27/17 08:14 Enoxaparin Sodium (Lovenox Inj) 40 mg Q24H SQ 08/25/17 21:00 Future Hold 08/25/17 22:40 Patient Own Medication PT OWN NARC MED: CLOBAZAM(ON... BID PO 08/26/17 09:00 08/27/17 08:12 Pantoprazole Sodium (Protonix) 40 mg DAILY PO 08/26/17 09:00 08/27/17 08:11 Objective Remarks GENERAL: Young man, resting in bed in nad. SKIN: Warm and dry. HEAD: Normocephalic. EYES: No injection or drainage. NECK: Supple, trachea midline. CARDIOVASCULAR: Regular rate and rhythm RESPIRATORY: anterior dyson clear. GASTROINTESTINAL: Abdomen soft, non-tender, nondistended. EXTREMITIES: No cyanosis MUSCULOSKELETAL: Adequate muscle tone. Assessment/Plan Problem List: (1) Astrocytoma brain tumor ICD Codes: C71.9 - Astrocytoma brain tumor Status: Chronic Plan: --poor prognosis, recommend hospice. --first presented the end of 2013 with seizure and found to have a large left frontoparietal lobe mass. --s/p partial resection which showed astrocytoma grade 2. went to [facility] for evaluation. He later saw Dr. Bowen and received radiation. He did not pursue concurrent radiosensitizing chemotherapy. It is unclear when was the last time he went to [facility] for followup. He now re-presented with seizure. CT of the head showed a large 8.3 x 5.2 cm mass in the left frontoparietal area with significant mass effect. There is left to right shift of about 2 cm with hydrocephalus. Assessment 37y/o male with astrocytoma admitted with seizure. h/o Astrocytoma grade 2. Seizure disorder. Skin cancer. B12 deficiency. Plan 1. recommend hospice. 2. continue supportive care. Attending Statement The exam, history, and the medical decision-making described in the above note were completed with the assistance of the mid-level provider. I reviewed and agree with the findings presented. I attest that I had a [id number] encounter with the patient on the same day, and personally performed and documented my assessment and findings in the medical record. Pt more alert but confused and has expressive aphasia. Denies headache or visual changes. MRI showed large cerebral mass with subfalcine and uncal herniation. Reviewed his records from [facility]. He has not f/u since 2014. 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 which portends poorer prognosis. I do not think he could tolerate chemotx well and unclear if he would benefit from the chemotx. Recommend hospice care and palliative care medicine has been consulted. Edie Garvey Aug 27, 2017 13:43 Dylan Gr MD Aug 27, 2017 16:11
--- NOTE | 2017-08-27 16:40 | HHI.NSPN ---
(Denia Holley) Note Status Status: Progress Note (Denia Holley) Interval History Interval History Mr. Yang is a 37-year-old male with history of a brain mass, status post craniotomy. He was diagnosed with a diffuse astrocytoma, WHO grade 2. He had a surgical resection followed by radiation therapy. He had tonic-clonic seizures. He was followed by an oncologist at the [facility] but he never underwent chemotherapy. He presented with altered mental status, aphasia, and right-sided weakness. He had an MRI of the brain which show a very large mass with mass-effect and severe midline shift. According to his family he is condition is rapidly deteriorating. CT of the brain was obtained. Neurosurgical consultation was requested 08/27: Appears a bit more comfortable today, appears to be speaking a bit more. (Denia Holley) Labs, Micro, & Vital Signs Results Date Time Temp Pulse Resp B/P (MAP) Pulse Ox O2 Delivery O2 Flow Rate FiO2 08/27/17 12:00 98.4 60 20 54/ 94 08/27/17 08:00 70 08/27/17 08:00 98.2 70 18 119/58 (78) 100 08/27/17 08:00 100 Room Air 08/27/17 04:00 98.4 52 22 102/57 (72) 96 08/27/17 00:00 98.2 52 22 106/57 (73) 96 08/26/17 23:00 52 08/26/17 20:00 98.5 66 19 109/63 (78) 98 08/26/17 19:00 96 Room Air 08/26/17 18:00 98.4 54 33 114/69 (84) 100 Constitutional Vital Signs Date Time Temp Pulse Resp B/P (MAP) Pulse Ox O2 Delivery O2 Flow Rate FiO2 08/27/17 12:00 98.4 60 20 54/ 94 08/27/17 08:00 70 08/27/17 08:00 98.2 70 18 119/58 (78) 100 08/27/17 08:00 100 Room Air 08/27/17 04:00 98.4 52 22 102/57 (72) 96 08/27/17 00:00 98.2 52 22 106/57 (73) 96 08/26/17 23:00 52 08/26/17 20:00 98.5 66 19 109/63 (78) 98 08/26/17 19:00 96 Room Air 08/26/17 18:00 98.4 54 33 114/69 (84) 100 (Denia Holley) Review of Systems ROS Limitations: Speech Impaired (Denia Holley) Physical Exam General: Young adult male who appears underweight Neruro: alert, awake. Expressive aphasia. Cranial nerve examination: pupils equal, round and reactive to light. Extra-ocular movements are intact. Right facial weakness. HEENT: Mild tenderness to palpation over the left frontal temporal region. Nonicteric sclera. Neck is soft and supple Motor: Appears to move all 4 extremities, exam limited due to clinical condition Sensory examination is intact to light touch in both the upper and lower extremities. bilateral plantar flexion response. Lungs. Clear Heart regular rhythm and rate Skin warm and dry (Denia Holley) General: COMFORTABLE IN NO DISTRESS. Appears moreawake Neruro: alert, awake. Expressive aphasia. Cranial nerve examination: pupils equal, round and reactive to light. Extra-ocular movements are intact. Right facial weakness. HEENT: Mild tenderness to palpation over the left frontal temporal region. Nonicteric sclera. Neck is soft and supple Motor: Appears to move all 4 extremities, exam limited due to clinical condition Sensory examination is intact to light touch in both the upper and lower extremities. bilateral plantar flexion response. Lungs. Clear Heart regular rhythm and rate Skin warm and dry (Aden Workman MD) Medications Current Medications Current Medications Medications (Trade) Dose Ordered Sig/Raghav Route PRN Reason Start Time Stop Time Status Last Admin Dose Admin Dexamethasone Sodium Phosphate (Decadron Inj) 10 mg Q6HR IV PUSH 08/25/17 18:00 08/27/17 12:10 Mannitol (Mannitol Inj) 25 gm Q6H IV 08/25/17 22:00 08/27/17 16:04 Sodium Chloride (NS Flush) 2 ml UNSCH PRN IV FLUSH FLUSH AFTER USING IV ACCESS 08/25/17 18:00 Sodium Chloride (NS Flush) 2 ml BID IV FLUSH 08/25/17 21:00 08/27/17 08:12 Albuterol/ Ipratropium (Duoneb Neb) 1 ampule Q4HR NEB PRN INH WHEEZING 08/25/17 18:00 Miscellaneous Information 1 [id number] XX 08/25/17 18:00 Chlorhexidine Gluconate (Chlorhexidine 2% Cloth) 3 pack Taper DAILY@04 TOP 08/26/17 04:00 08/22/18 03:59 Chlorhexidine Gluconate (Chlorhexidine 2% Cloth) 3 pack UNSCH PRN TOP HYGIENIC CARE 08/25/17 18:00 Eszopiclone (Lunesta) 1 mg HS PRN PO INSOMNIA 08/25/17 21:00 08/26/17 21:54 Lorazepam (Ativan) 1 mg Q6H PRN PO ANXIETY 08/25/17 20:30 08/26/17 16:33 Oxcarbazepine (Trileptal) 600 mg BID@1500,2100 PO 08/25/17 21:00 08/27/17 15:31 Oxcarbazepine (Trileptal) 900 mg DAILY PO 08/26/17 09:00 08/27/17 08:12 Sodium Chloride 1,000 ml @ 125 mls/hr Q8H IV 08/25/17 20:30 08/27/17 08:14 Enoxaparin Sodium (Lovenox Inj) 40 mg Q24H SQ 08/25/17 21:00 Future Hold 08/25/17 22:40 Hydromorphone HCl (Dilaudid Pf Inj) 0.5 mg Q4H PRN IV PAIN 6 TO 10 08/25/17 20:45 Acetaminophen (Tylenol) 500 mg Q4H PRN PO fever or pain 1-5 08/25/17 20:45 Miscellaneous (Pill Splitter) 1 ea UNSCH PRN OTHER SEE LABEL COMMENTS 08/25/17 21:15 Patient Own Medication PT OWN NARC MED: CLOBAZAM(ON... BID PO 08/26/17 09:00 08/27/17 08:12 Pantoprazole Sodium (Protonix) 40 mg DAILY PO 08/26/17 09:00 08/27/17 08:11 (Denia Holley) Current Medications The exam, history, and the medical decision-making described in the above note were completed with the assistance of the mid-level provider. I reviewed and agree with the findings presented. I attest that I had a [id number] encounter with the patient on the same day, and personally performed and documented my assessment and findings in the medical record. (Aden Workman MD) Medical Decision Making MDM Remarks 37-year-old male with recurrent large brain mass with significant mass-effect and midline shift Last Impressions Brain MRI 08/26/17 0000 Signed Impressions: Service Date/Time: Saturday, August 26, 2017 12:16 - CONCLUSION: 1. 7.2 cm left frontotemporal mass with findings of subfalcine and uncal herniation characteristic of glioblastoma. The findings were discussed with Dr. Workman at the time of dictation Jon Aly MD Head CT 08/25/17 1722 Signed Impressions: Service Date/Time: Friday, August 25, 2017 17:26 - CONCLUSION: 1. Large heterogeneous left frontoparietal mid convexity mass measuring 8.3 x 5.2 cm with significant associated mass effect and resultant hydrocephalus, as above. Luc Mcarthur MD (Denia Holley) Plan Plan Remarks Dr. Workman had discussed extensively with the patient's parents, as well as oncology, and palliative care most likely patient will be transitioning to hospice care continue Decadron, Protonix for ulcer prophylaxis (Denia Holley) Attending Statement ABOVE THE ALTERNATIVES OF TREATMENT HAVE BEEN DISCUSSED WITH THE FAMILY. i CAN NOT BE ENTHUSIASTIC TO RECOMMEND SURGERY. PROGNOSIS IS NOT GOOD The exam, history, and the medical decision-making described in the above note were completed with the assistance of the mid-level provider. I reviewed and agree with the findings presented. I attest that I had a [id number] encounter with the patient on the same day, and personally performed and documented my assessment and findings in the medical record. (Aden Workman MD) Denia Holley Aug 27, 2017 16:40 Aden Workman MD Aug 31, 2017 21:08
[2017-08-27] MEDS: ESZOPICLONE 1 MG TAB PO PRN (20:04)
[2017-08-28] VITALS: BP 110/63; PULSE 48; RESP 21; TEMP 98.7; O2SAT 95
[2017-08-28] MEDS: CHLORHEXIDINE GLUCONATE 2 % 1 PACK (2 CLOTHS) TOP SCH (03:58)
[2017-08-28 04:00] VITALS: BP 117/79; PULSE 59; RESP 24; TEMP 98.2; O2SAT 97
[2017-08-28] MEDS: HYDROmorphone HCL PF 2 MG/ML VIAL IV PRN ×2 (04:14→09:50)
[2017-08-28] MEDS: DEXAMETHASONE SOD PHOS 4 MG/ML VIAL IV PUSH SCH ×2 (04:14→11:03)
[2017-08-28] MEDS: MANNITOL 12.5 GM/50 ML VIAL IV SCH ×2 (04:14→11:03)
[2017-08-28] MEDS: SODIUM CHLOR 0.9% 1000 ML INJ 1,000 ML IV SCH ×2 (04:15→08:15)
[2017-08-28 07:00] VITALS: PULSE 44
--- NOTE | 2017-08-28 07:31 | PD.ONC.PN ---
Subjective Subjective Remarks Denies headache. +aphasia but speak a little more. Does not like the restraint. Lethargic. Mother at the bedside. Objective Data Date Time Temp Pulse Resp B/P (MAP) Pulse Ox O2 Delivery O2 Flow Rate FiO2 08/28/17 04:44 18 08/28/17 04:00 98.2 59 24 117/79 (92) 97 08/28/17 00:00 98.7 48 21 110/63 (79) 95 08/27/17 23:00 52 08/27/17 20:00 98.7 55 24 105/62 (76) 97 08/27/17 19:00 97 Room Air 08/27/17 16:00 98.6 60 18 107/56 (73) 100 08/27/17 15:00 66 08/27/17 12:00 98.4 60 20 54/ 94 08/27/17 08:00 70 08/27/17 08:00 98.2 70 18 119/58 (78) 100 08/27/17 08:00 100 Room Air Result Diagram: 08/26/17 0330 08/26/17 033 Administered Medications Medications (Trade) Dose Ordered Sig/Raghav Route PRN Reason Start Time Stop Time Status Last Admin Dose Admin Dexamethasone Sodium Phosphate (Decadron Inj) 10 mg Q6HR IV PUSH 08/25/17 18:00 08/28/17 04:14 Mannitol (Mannitol Inj) 25 gm Q6H IV 08/25/17 22:00 08/28/17 04:14 Sodium Chloride (NS Flush) 2 ml UNSCH PRN IV FLUSH FLUSH AFTER USING IV ACCESS 08/25/17 18:00 08/27/17 22:43 Sodium Chloride (NS Flush) 2 ml BID IV FLUSH 08/25/17 21:00 08/27/17 20:04 Chlorhexidine Gluconate (Chlorhexidine 2% Cloth) 3 pack Taper DAILY@04 TOP 08/26/17 04:00 08/22/18 03:59 08/28/17 03:58 Eszopiclone (Lunesta) 1 mg HS PRN PO INSOMNIA 08/25/17 21:00 08/27/17 20:04 Lorazepam (Ativan) 1 mg Q6H PRN PO ANXIETY 08/25/17 20:30 08/26/17 16:33 Oxcarbazepine (Trileptal) 600 mg BID@1500,2100 PO 08/25/17 21:00 08/27/17 20:04 Oxcarbazepine (Trileptal) 900 mg DAILY PO 08/26/17 09:00 08/27/17 08:12 Sodium Chloride 1,000 ml @ 125 mls/hr Q8H IV 08/25/17 20:30 08/28/17 04:15 Enoxaparin Sodium (Lovenox Inj) 40 mg Q24H SQ 08/25/17 21:00 Future Hold 08/25/17 22:40 Hydromorphone HCl (Dilaudid Pf Inj) 0.5 mg Q4H PRN IV PAIN 6 TO 10 08/25/17 20:45 08/28/17 04:14 Patient Own Medication PT OWN NARC MED: CLOBAZAM(ON... BID PO 08/26/17 09:00 08/27/17 20:04 Pantoprazole Sodium (Protonix) 40 mg DAILY PO 08/26/17 09:00 08/27/17 08:11 Objective Remarks GENERAL: Frail and lethargic. Temporal wasting. SKIN: Warm and dry. HEAD: Normocephalic. EYES: No scleral icterus. No injection or drainage. NECK: Supple, trachea midline. No JVD or lymphadenopathy. LYMPHATIC: No adenopathy. CARDIOVASCULAR: Regular rate and rhythm without murmurs. RESPIRATORY: Breath sounds equal bilaterally. No accessory muscle use. GASTROINTESTINAL: Abdomen soft, non-tender, nondistended. EXTREMITIES: No cyanosis, or edema. MUSCULOSKELETAL: Adequate muscle tone. NEUROLOGICAL: +aphasia. Awake, alert, and oriented tos self. 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 --first presented the end of 2013 with seizure and found to have a large left frontoparietal lobe mass. 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 went to [facility] for evaluation. He later saw Dr. Bowen and received radiation. He did not pursue concurrent radiosensitizing chemotherapy. Last visit to [facility] was 2014. He has been seeing neurologist. He now re-presented with seizure. CT of the head showed a large 8.3 x 5.2 cm mass in the left frontoparietal area with significant mass effect. There is left to right shift of about 2 cm with hydrocephalus. MRI showed subfalcine and uncal herniation. Assessment 37y/o male with astrocytoma admitted with seizure. h/o Astrocytoma grade 2. Seizure disorder. Skin cancer. B12 deficiency. Plan 1. recommend hospice. 2. continue supportive care. 3. Discussed with pt's mother, she has no further questions. Dylan Gr MD Aug 28, 2017 07:31
[2017-08-28] MEDS: PANTOPRAZOLE SOD 40 MG DELAYED RELEASE TAB PO SCH (08:03)
[2017-08-28] MEDS: CLOBAZAM 20 MG PO SCH (08:04)
[2017-08-28] MEDS: OXcarbazepine 600 MG TAB PO SCH (08:04)
[2017-08-28] MEDS: SODIUM CHLORIDE 0.9% FLUSH 10 ML FLUSH IV FLUSH SCH (08:05)
--- NOTE | 2017-08-28 09:27 | HHI.NSPN ---
(Denia Holley) Note Status Status: Progress Note (Denia Holley) Interval History Interval History Mr. Yang is a 37-year-old male with history of a brain mass, status post craniotomy. He was diagnosed with a diffuse astrocytoma, WHO grade 2. He had a surgical resection followed by radiation therapy. He had tonic-clonic seizures. He was followed by an oncologist at the [facility] but he never underwent chemotherapy. He presented with altered mental status, aphasia, and right-sided weakness. He had an MRI of the brain which show a very large mass with mass-effect and severe midline shift. According to his family he is condition is rapidly deteriorating. CT of the brain was obtained. Neurosurgical consultation was requested 08/27: Appears a bit more comfortable today, appears to be speaking a bit more. 08/28: Family has decided on comfort care. speech a bit better this morning. pt denies headaches. (Denia Holley) Labs, Micro, & Vital Signs Results Date Time Temp Pulse Resp B/P (MAP) Pulse Ox O2 Delivery O2 Flow Rate FiO2 08/28/17 07:00 98 Room Air 08/28/17 04:44 18 08/28/17 04:00 98.2 59 24 117/79 (92) 97 08/28/17 00:00 98.7 48 21 110/63 (79) 95 08/27/17 23:00 52 08/27/17 20:00 98.7 55 24 105/62 (76) 97 08/27/17 19:00 97 Room Air 08/27/17 16:00 98.6 60 18 107/56 (73) 100 08/27/17 15:00 66 08/27/17 12:00 98.4 60 20 54/ 94 Constitutional Vital Signs Date Time Temp Pulse Resp B/P (MAP) Pulse Ox O2 Delivery O2 Flow Rate FiO2 08/28/17 07:00 98 Room Air 08/28/17 04:44 18 08/28/17 04:00 98.2 59 24 117/79 (92) 97 08/28/17 00:00 98.7 48 21 110/63 (79) 95 08/27/17 23:00 52 08/27/17 20:00 98.7 55 24 105/62 (76) 97 08/27/17 19:00 97 Room Air 08/27/17 16:00 98.6 60 18 107/56 (73) 100 08/27/17 15:00 66 08/27/17 12:00 98.4 60 20 54/ 94 (Denia Holley) Review of Systems ROS Limitations: Clinical Condition, Speech Impaired (Denia Holley) Physical Exam General: Young adult male who appears underweight Neruro: alert, awake. Expressive aphasia, with some improvement this morning. Cranial nerve examination: pupils equal, round and reactive to light. Extra- ocular movements are intact. Right facial weakness. HEENT: Mild tenderness to palpation over the left frontal temporal region. Nonicteric sclera. Neck is soft and supple Motor: Appears to move all 4 extremities, exam limited due to clinical condition Sensory examination is intact to light touch in both the upper and lower extremities. bilateral plantar flexion response. Lungs. Clear Heart regular rhythm and rate Skin warm and dry (Denia Holley) General: Comfortable Neruro: alert, awake. Expressive aphasia. Cranial nerve examination: pupils equal, round and reactive to light. Extra-ocular movements are intact. Right facial weakness. HEENT: Mild tenderness to palpation over the left frontal temporal region. Nonicteric sclera. Neck is soft and supple Motor: Appears to move all 4 extremities, exam limited due to clinical condition Sensory examination is intact to light touch in both the upper and lower extremities. bilateral plantar flexion response. Lungs. Clear Heart regular rhythm and rate Skin warm and dry (Aden Workman MD) Medications Current Medications Current Medications Medications (Trade) Dose Ordered Sig/Raghav Route PRN Reason Start Time Stop Time Status Last Admin Dose Admin Dexamethasone Sodium Phosphate (Decadron Inj) 10 mg Q6HR IV PUSH 08/25/17 18:00 08/28/17 04:14 Mannitol (Mannitol Inj) 25 gm Q6H IV 08/25/17 22:00 08/28/17 04:14 Sodium Chloride (NS Flush) 2 ml UNSCH PRN IV FLUSH FLUSH AFTER USING IV ACCESS 08/25/17 18:00 08/27/17 22:43 Sodium Chloride (NS Flush) 2 ml BID IV FLUSH 08/25/17 21:00 08/28/17 08:05 Albuterol/ Ipratropium (Duoneb Neb) 1 ampule Q4HR NEB PRN INH WHEEZING 08/25/17 18:00 Miscellaneous Information 1 Q361D XX 08/25/17 18:00 Chlorhexidine Gluconate (Chlorhexidine 2% Cloth) 3 pack Taper DAILY@04 TOP 08/26/17 04:00 08/22/18 03:59 08/28/17 03:58 Chlorhexidine Gluconate (Chlorhexidine 2% Cloth) 3 pack UNSCH PRN TOP HYGIENIC CARE 08/25/17 18:00 Eszopiclone (Lunesta) 1 mg HS PRN PO INSOMNIA 08/25/17 21:00 08/27/17 20:04 Lorazepam (Ativan) 1 mg Q6H PRN PO ANXIETY 08/25/17 20:30 08/26/17 16:33 Oxcarbazepine (Trileptal) 600 mg BID@1500,2100 PO 08/25/17 21:00 08/27/17 20:04 Oxcarbazepine (Trileptal) 900 mg DAILY PO 08/26/17 09:00 08/28/17 08:04 Sodium Chloride 1,000 ml @ 125 mls/hr Q8H IV 08/25/17 20:30 08/28/17 08:15 Enoxaparin Sodium (Lovenox Inj) 40 mg Q24H SQ 08/25/17 21:00 Future Hold 08/25/17 22:40 Hydromorphone HCl (Dilaudid Pf Inj) 0.5 mg Q4H PRN IV PAIN 6 TO 10 08/25/17 20:45 08/28/17 04:14 Acetaminophen (Tylenol) 500 mg Q4H PRN PO fever or pain 1-5 08/25/17 20:45 Miscellaneous (Pill Splitter) 1 ea UNSCH PRN OTHER SEE LABEL COMMENTS 08/25/17 21:15 Patient Own Medication PT OWN NARC MED: CLOBAZAM(ON... BID PO 08/26/17 09:00 08/28/17 08:04 Pantoprazole Sodium (Protonix) 40 mg DAILY PO 08/26/17 09:00 08/28/17 08:03 (Denia Holley) Current Medications Current Medications Sodium Chloride (NS Flush) 2 ml UNSCH PRN IV FLUSH FLUSH AFTER USING IV ACCESS ; Start 08/25/17 at 17:30; Stop 08/25/17 at 21:13; Status DC Mannitol (Mannitol Inj) 25 gm ONCE ONCE IV Last administered on 08/25/17at 17:50 ; Start 08/25/17 at 17:30; Stop 08/25/17 at 17:31; Status DC Dexamethasone Sodium Phosphate (Decadron Inj) 6 mg ONCE ONCE IV PUSH Last administered on 08/25/17at 17:51; Start 08/25/17 at 17:30; Stop 08/25/17 at 17:31; Status DC Dexamethasone Sodium Phosphate (Decadron Inj) 10 mg Q6HR IV PUSH Last administered on 08/28/17at 11:03; Start 08/25/17 at 18:00; Stop 08/28/17 at 11:06 ; Status DC Mannitol (Mannitol Inj) 25 gm ONCE ONCE IV ; Start 08/25/17 at 18:00; Stop at 18:09; Status DC Mannitol (Mannitol Inj) 25 gm Q6H IV Last administered on 08/28/17at 11:03; Start 08/25/17 at 22:00; Stop 08/28/17 at 11:06; Status DC Sodium Chloride (NS Flush) 2 ml UNSCH PRN IV FLUSH FLUSH AFTER USING IV ACCESS Last administered on 08/27/17at 22:43; Start 08/25/17 at 18:00; Stop 08/28/17 at 16:43; Status DC Sodium Chloride (NS Flush) 2 ml BID IV FLUSH Last administered on 08/28/17at 08: 05; Start 08/25/17 at 21:00; Stop 08/28/17 at 16:43; Status DC Pantoprazole Sodium (Protonix Inj) 40 mg DAILY IV PUSH Last administered on 08/25at 18:00; Start 08/25/17 at 18:00; Stop 08/26/17 at 08:35; Status DC Albuterol/ Ipratropium (Duoneb Neb) 1 ampule Q4HR NEB PRN INH WHEEZING; Start 08/25/17 at 18:00; Stop 08/28/17 at 16:43; Status DC Miscellaneous Information 1 Q361D XX ; Start 08/25/17 at 18:00; Stop 08/28/17 at 16:43; Status DC Chlorhexidine Gluconate (Chlorhexidine 2% Cloth) 3 pack Taper DAILY@04 TOP Last administered on 08/28/17at 03:58; Start 08/26/17 at 04:00; Stop 08/28/17 at 16:43; Status DC Chlorhexidine Gluconate (Chlorhexidine 2% Cloth) 3 pack UNSCH PRN TOP HYGIENIC CARE; Start 08/25/17 at 18:00; Stop 08/28/17 at 16:43; Status DC Eszopiclone (Lunesta) 1 mg HS PRN PO INSOMNIA Last administered on 08/27/17at 20 :04; Start 08/25/17 at 21:00; Stop 08/28/17 at 16:43; Status DC Lorazepam (Ativan) 1 mg Q6H PRN PO ANXIETY Last administered on 08/26/17at 16:33 ; Start 08/25/17 at 20:30; Stop 08/28/17 at 16:43; Status DC Oxcarbazepine (Trileptal) 600 mg BID@1500,2100 PO Last administered on at 20:04; Start 08/25/17 at 21:00; Stop 08/28/17 at 16:43; Status DC Oxcarbazepine (Trileptal) 900 mg DAILY PO Last administered on 08/28/17at 08:04 ; Start 08/26/17 at 09:00; Stop 08/28/17 at 16:43; Status DC Non-Formulary Medication 20 mg BID .ROUTE ; Start 08/25/17 at 21:00; Status UNV Sodium Chloride 1,000 ml @ 125 mls/hr Q8H IV Last administered on 08/28/17at 08 :15; Start 08/25/17 at 20:30; Stop 08/28/17 at 11:06; Status DC Enoxaparin Sodium (Lovenox Inj) 40 mg Q24H SQ Last administered on 08/25/17at 22: 40; Start 08/25/17 at 21:00; Stop 08/28/17 at 11:06; Status DC Hydromorphone HCl (Dilaudid Pf Inj) 0.5 mg Q4H PRN IV PAIN 6 TO 10 Last administered on 08/28/17at 09:50; Start 08/25/17 at 20:45; Stop 08/28/17 at 16:43 ; Status DC Acetaminophen (Tylenol) 500 mg Q4H PRN PO fever or pain 1-5; Start 08/25/17 at 20:45; Stop 08/28/17 at 16:43; Status DC Patient Own Medication PT OWN MED: CLOBAZAM(ONFI) 20 MG PO BID BID PO ; Start at 21:00; Stop 08/26/17 at 01:56; Status DC Miscellaneous (Pill Splitter) 1 ea UNSCH PRN OTHER SEE LABEL COMMENTS; Start at 21:15; Stop 08/28/17 at 16:43; Status DC Patient Own Medication PT OWN NARC MED: CLOBAZAM(ON... BID PO Last administered on 08/28/17at 08:04; Start 08/26/17 at 09:00; Stop 08/28/17 at 16:43 ; Status DC Pantoprazole Sodium (Protonix) 40 mg DAILY PO Last administered on 08/28/17at 08 :03; Start 08/26/17 at 09:00; Stop 08/28/17 at 16:43; Status DC Gadodiamide (Omniscan Pf Inj) 11 ml STK-MED ONCE IVCONTRAST Last administered on 08/26/17at 12:43; Start 08/26/17 at 12:43; Stop 08/26/17 at 12:44; Status DC Dexamethasone (Decadron) 4 mg Q6H PO ; Start 08/28/17 at 17:00; Stop 08/28/17 at 17:00; Status DC (Aden Workamn MD) Medical Decision Making MDM Remarks 37-year-old male with recurrent large brain mass with significant mass-effect and midline shift Last Impressions Brain MRI 08/26/17 0000 Signed Impressions: Service Date/Time: Saturday, August 26, 2017 12:16 - CONCLUSION: 1. 7.2 cm left frontotemporal mass with findings of subfalcine and uncal herniation characteristic of glioblastoma. The findings were discussed with Dr. Workman at the time of dictation Jon Aly MD Head CT 08/25/17 1722 Signed Impressions: Service Date/Time: Friday, August 25, 2017 17:26 - CONCLUSION: 1. Large heterogeneous left frontoparietal mid convexity mass measuring 8.3 x 5.2 cm with significant associated mass effect and resultant hydrocephalus, as above. Luc Mcarthur MD (Denia Holley) Plan Plan Remarks Dr. Workman had discussed extensively with the patient's parents, as well as oncology, and palliative care most likely patient will be transitioning to hospice care continue Decadron, Protonix for ulcer prophylaxis (Denia Holley) Attending Statement As above. I discussed extensively with him, his parents, the oncologist and the radiation oncology doctors the available options his condition is very serious, his prognosis is not good Consult palliative care to further discuss options The exam, history, and the medical decision-making described in the above note were completed with the assistance of the mid-level provider. I reviewed and agree with the findings presented. I attest that I had a [id number] encounter with the patient on the same day, and personally performed and documented my assessment and findings in the medical record. (Aden Workman MD) Denia Holley Aug 28, 2017 09:27 Aden Workman MD Aug 31, 2017 21:10
[2017-08-28 10:20] VITALS: RESP 22
[2017-08-28] MEDS ORDERED: DEXA4TAB PO (11:10)
--- NOTE | 2017-08-28 11:12 | HHI.CCPN ---
Subjective Remarks/Hospital Course 37-year-old unfortunate very pleasant male with history of WHO grade 2 astrocytoma, status post craniotomy by Dr. Workman. He had a surgical resection followed by radiation therapy. He was followed by an oncologist at the [facility] but he never underwent chemotherapy. Over the course of the last 6 weeks , he has had progressively worsening symptoms including ataxic gait, slurred speech, right facial droop. He had an MRI done as an out patient on 08/11. The MRI shows a new, large extra-axial mass in the left frontal and middle cranial fossa. According to his family he is condition is rapidly deteriorating. The patient is admitted to surgical ICU with neurosurgical consultation in place. SUBJ 08/26: Lying in bed, breathing comfortably. Persistent right facial droop. Currently receiving IV mannitol, IV Decadron. Mentation is altered, I have ordered EEG. Neurology neurosurgery following. Discussed with oncology Dr. Gr 08/27: Lying in bed appears comfortable, no further treatment options can be provided. Palliative care following family also request more information about hospice. D/W Dr. Workman and Dr. Mullen. I agree with transition to Hospice 08/28: Looks comfortable lying in bed. Family decided on hospice/outpatient. Plan for hospice discharge afternoon. Change Decadron to p.o. Objective Vital Signs Date Time Temp Pulse Resp B/P (MAP) Pulse Ox O2 Delivery O2 Flow Rate FiO2 08/28/17 07:00 98 Room Air 08/28/17 07:00 44 08/28/17 04:44 18 08/28/17 04:00 98.2 117/79 (92) Result Diagram: 08/26/17 0330 08/26/17 0330 Imaging Last [address] 08/25/17 4372 Signed Impressions: Service Date/Time: Friday, August 25, 2017 17:26 - CONCLUSION: 1. Large heterogeneous left frontoparietal mid convexity mass measuring 8.3 x 5.2 cm with significant associated mass effect and resultant hydrocephalus, as above. Luc Mcarthur MD Objective Remarks GENERAL: This is a young man who is very thin with right-sided facial droop. SKIN: warm/dry. HEAD: Normocephalic. Atraumatic. EYES: Pupils equal and round. No scleral icterus. No injection or drainage. ENT: No nasal bleeding or discharge. R facial droop. NECK: Trachea midline. Full range of motion without pain.. CARDIOVASCULAR: Regular rate and rhythm. RESPIRATORY: Clear to auscultation. Breath sounds equal bilaterally. MUSCULOSKELETAL: No obvious deformities. NEUROLOGICAL: Right-sided facial droop. Full and equal muscle strength of his upper extremities. 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 DC Mannitol in anticipation of hospice discharge -Consultants: Dr. Workman, Dr. Johnson, oncologist, Dr. Gr and radiation oncologist, Dr. Bowen -Overall prognosis is poor, no treatment can be offered at this time -Family met with hospice plan for discharge to hospice facility for comfort measures only Seizure disorder -Continue Trileptal, Clobazam -Ativan as needed for seizure Anxiety -Lorazepam as needed Insomnia -Lunesta DVT GI prophylaxis -Samir's and SCDs -Lovenox-hold due to very large intracranial tumor -Pepcid Critical Care: Level 2. Discharge to outpatient hospice when bed available Shweta Zuleta MD Aug 28, 2017 11:12
--- NOTE | 2017-08-28 11:58 | HHI.DS ---
Discharge Summary Admission Date Aug 25, 2017 at 18:06 Admitting Diagnosis brain tumor (1) Inoperable large brain tumor (2) Astrocytoma brain tumor ICD Code: C71.9 - Astrocytoma brain tumor Status: Chronic (3) Encephalopathy ICD Code: G93.40 - Encephalopathy, unspecified (4) Aphasia ICD Code: R47.01 - Aphasia (5) Status post craniotomy ICD Code: Z98.89 - Status post craniotomy Status: Acute (6) Seizures ICD Code: R56.9 - Seizures Status: Chronic Brief History 37-year-old unfortunate very pleasant male with history of WHO grade 2 astrocytoma, status post craniotomy by Dr. Workman. He had a surgical resection followed by radiation therapy. He was followed by an oncologist at the [facility] but he never underwent chemotherapy. Over the course of the last 6 weeks , he has had progressively worsening symptoms including ataxic gait, slurred speech, right facial droop. He had an MRI done as an out patient on 08/11. The MRI shows a new, large extra-axial mass in the left frontal and middle cranial fossa. According to his family he is condition is rapidly deteriorating. The patient is admitted to surgical ICU with neurosurgical consultation in place. CBC/BMP: 08/26/17 0330 08/26/17 0330 Significant Findings Laboratory Tests Test 08/25/17 17:30 08/26/17 03:30 08/26/17 11:30 Neutrophils (%) (Auto) 87.0 % (16.0-70.0) 86.5 % (16.0-70.0) Lymphocytes # (Auto) 0.8 TH/MM3 (1.0-4.8) 0.8 TH/MM3 (1.0-4.8) Total Protein 8.7 GM/DL (6.4-8.2) Chloride Level 108 MEQ/L (98-107) 108 MEQ/L (98-107) Estimat Glomerular Filtration Rate 85 ML/MIN (>89) Random Glucose 109 MG/DL (74-106) Imaging MRI brain- 1. 7.2 cm left frontotemporal mass with findings of subfalcine and uncal herniation characteristic of glioblastoma. PE at Discharge GENERAL: This is a young appearing man who is very thin with right-sided facial droop. SKIN: warm/dry. HEAD: Normocephalic. Atraumatic. EYES: Pupils equal and round. No scleral icterus. No injection or drainage. ENT: No nasal bleeding or discharge. R facial droop. NECK: Trachea midline. Full range of motion without pain.. CARDIOVASCULAR: Regular rate and rhythm. RESPIRATORY: No accessory muscle use. Clear to auscultation. Breath sounds equal bilaterally. MUSCULOSKELETAL: No obvious deformities. NEUROLOGICAL: Right-sided facial droop. Full and equal muscle strength of his upper extremities. Mental status is altered, some expressive and receptive aphasia, confused, word [facility] Hospital Course 37-year-old unfortunate very pleasant male with history of WHO grade 2 astrocytoma, status post craniotomy by Dr. Workman. He had a surgical resection followed by radiation therapy. He was followed by an oncologist at the [facility] but he never underwent chemotherapy. Over the course of the last 6 weeks , he has had progressively worsening symptoms including ataxic gait, slurred speech, right facial droop. He had an MRI done as an out patient on 08/11. The MRI shows a new, large extra-axial mass in the left frontal and middle cranial fossa. According to his family he is condition is rapidly deteriorating. The patient is admitted to surgical ICU with neurosurgical consultation in place. SUBJ 08/26: Lying in bed, breathing comfortably. Persistent right facial droop. Currently receiving IV mannitol, IV Decadron. Mentation is altered, I have ordered EEG. Neurology neurosurgery following. Discussed with oncology Dr. Gr 08/27: Lying in bed appears comfortable, no further treatment options can be provided. Palliative care following family also request more information about hospice. D/W Dr. Workman and Dr. Mullen. I agree with transition to Hospice 08/28: Looks comfortable lying in bed. Family decided on hospice/outpatient. Plan for hospice discharge afternoon. Change Decadron to p.o. and DC Mannitol Pt Condition on Discharge: Deteriorating Discharge Disposition: Hospice/Med Facility Discharge Instructions DIET: Follow Instructions for: As Tolerated, No Restrictions Activities you can perform: See Additionl Instruction Other Activity Instructions: PER HOSPICE New Medications: Dexamethasone (Dexamethasone) 4 Mg Tab 4 MG PO Q6HR PRN for edema for 30 Days, #120 TAB 0 Refills Continued Medications: Clobazam (Onfi) 20 Mg Tab 20 MG BID, TAB Eszopiclone (Lunesta) 1 Mg Tab 1 MG PO HS PRN for INSOMNIA, TAB 0 Refills Lorazepam (Lorazepam) 1 Mg Tab 1 MG PO Q6H PRN for ANXIETY, TAB 0 Refills Oxcarbazepine (Oxcarbazepine) 600 Mg Tab 600 MG PO BID for Seizure Control, #60 TAB 0 Refills Oxcarbazepine (Oxcarbazepine) 600 Mg Tab 900 MG PO DAILY for Seizure Control, #30 TAB 0 Refills Additional Information Please note that Decadron 4 mg PO q6hr is scheduled and NOT PRN Shweta Zuleta MD Aug 28, 2017 11:58
[2017-08-28] MEDS ORDERED: DEXAMETHASONE 4 MG TAB PO SCH (17:00)
== END 2017-08-28 14:15 | disposition hospice, inpatient (51) | DRG 54 ==
LOC: NEPC 17:14 → NEDA 18:06 → N03A 22:03
PROVIDERS: ADMIT Internal Medicine; ATTEND Internal Medicine
DX: C71.9 Malignant neoplasm of brain, unspecified (principal); G93.40 Encephalopathy, unspecified; R47.01 Aphasia; G40.909 Epilepsy, unspecified, not intractable, without status epilepticus; F41.9 Anxiety disorder, unspecified; G47.00 Insomnia, unspecified; F17.210 Nicotine dependence, cigarettes, uncomplicated; Z51.5 Encounter for palliative care; Z92.3 Personal history of irradiation; Z85.820 Personal history of malignant melanoma of skin
CPT/HCPCS: 70450; 70553; 80053; 80183; 85025; 95819; 96374; 96375; A9579; C9113; J1100; J1170; J1650; J2150; J7030

== ENCOUNTER 2017-09-09 10:26 | Inpatient (IN) | payer BC, OTHER ==
[~2017-09-09] VITALS: Ht 170.2 cm; Wt 50.0 kg
[~2017-09-09 10:26] MED LIST changes: -CIPR500T4 PO; +DEXA4TAB PO; -HYDR-3533 PO; -LACO100 PO; -LORA1TAB PO; +LORA1TAB12 PO; +LUNE1TAB8 PO; +ONFI20TA; -OXCA300 PO; +OXCA600T PO
[2017-09-09 10:35] VITALS: BP 115/71; PULSE 75; RESP 16; TEMP 98.2; O2SAT 98
--- NOTE | 2017-09-09 11:33 | PD ---
HPI Chief Complaint: Psychiatric Symptoms Time Seen by Provider: 11:12 Travel History International Travel<30 days: No Contact w/Intl Traveler<30days: No Traveled to known affect area: No History of Present Illness HPI 37-year-old male that presents to the ED for evaluation of Jain act. Patient has a significant history of brain tumor that is nonoperable and unfortunately cannot get radiation for it. Patient had history of brain tumor in the past and apparently came back. He was seen here earlier this month for evaluation of this and family decided to have the patient in hospice care. Apparently patient has been very aggressive and agitated at home. Family are concerned because patient continues to be very aggressive even with medications. Patient apparently takes Dilaudid and Ativan as well as was given Haldol recently and minimal improvement of symptoms. Patient has home hospice. Patient was Jain acted by the [facility] secondary to patient's agitation and alteration. Patient apparently also has not taken his medications. Patient currently not receiving any chemotherapy. Most of the history is obtained from ED nurse as well as paperwork and medical records as patient himself is not able to give me a good history which appears to be chronic from him since having this mass. He does opens his eyes and nods but he does appear to have a very flat athletic and cannot really give me any information PFSH Past Medical History Anxiety: Yes Depression: Yes Cancer: Yes (glioblastoma) Cardiovascular Problems: No Diabetes: No Diminished Hearing: Yes Endocrine: No Genitourinary: No Hepatitis: No Hiatal Hernia: No Hypertension: No Immune Disorder: No Medical other: No Musculoskeletal: Yes (two knee surgeries in right knee) Neurologic: Yes (seizures occ in the morning, partial,difficulty with balance ) Psychiatric: No Reproductive: No Respiratory: No Immunizations Current: Yes Seizures: Yes Thyroid Disease: No Tetanus Vaccination: Unknown Past Surgical History Abdominal Surgery: No AICD: No Body Medical Devices: plates in place for crani,metal in r leg Cardiac Surgery: No Ear Surgery: No Eye Surgery: No Joint Replacement: No Neurologic Surgery: Yes (craniotomy with partial resection ) Oral Surgery: No Pacemaker: No Thoracic Surgery: No Other Surgery: Yes (two knee surgeries, melanoma skin cancer removed) Social History Alcohol Use: No Tobacco Use: No Substance Use: No Allergies-Medications (Allergen,Severity, Reaction): Coded Allergies: *MDRO Multi-Drug Resistant Organism (Unverified Adverse Reaction, Unknown , 08/25/17) pt states had mrsa infection under arm from work exposed years ago Reported Meds & Prescriptions Reported Meds & Active Scripts Active Reported Sennosides 8.6 Mg Tab 1-2 Tab PO BID PRN Polyethylene Glycol 3350 17 Gram/Dose Pow Omeprazole 20 Mg Tab 20 Mg PO DAILY Duoneb (Ipratropium-Albuterol Neb) 0.5-2.5 Mg/3 Ml Neb 1 Nebule INH Q4HR NEB Hydromorphone (Hydromorphone HCl) 4 Mg Tab 4 Mg PO Q4H PRN Hydromorphone (Hydromorphone HCl) 2 Mg Tab 2 Mg PO Q4H PRN Lorazepam 2 Mg Tab 2 Mg PO Q6H PRN Dexamethasone 4 Mg Tab 4 Mg PO Q6HR Haloperidol 2 Mg Tab 4 Mg PO TID Haloperidol 2 Mg Tab 2 Mg PO BID Haloperidol 1 Mg Tab 1 Mg PO Q6HR Bisacodyl Supp (Bisacodyl) 10 Mg Supp 10 Mg RECTAL DAILY PRN Tylenol (Acetaminophen) 325 Mg Tab 650 Mg PO Q4H Onfi (Clobazam) 20 Mg Tab 20 Mg Q12HR Oxcarbazepine 600 Mg Tab 900 Mg PO DAILY Oxcarbazepine 600 Mg Tab 600 Mg PO BID Review of Systems ROS Limitations: Altered Mental Status, Poor Historian Except as stated in HPI: all other systems reviewed are Neg Physical Exam Exam Limitations: Altered Mental Status, Poor Historian Narrative GENERAL: SKIN: Warm and dry. HEAD: Atraumatic. Normocephalic. EYES: Pupils equal and round. No scleral icterus. No injection or drainage. ENT: No nasal bleeding or discharge. Mucous membranes pink and moist. Tongue is midline. No uvula deviation. NECK: Trachea midline. No JVD. CARDIOVASCULAR: Regular rate and rhythm. No murmurs, S3, S4. RESPIRATORY: No accessory muscle use. Clear to auscultation. Breath sounds equal bilaterally. GASTROINTESTINAL: Abdomen soft, non-tender, nondistended. Hepatic and splenic margins not palpable. MUSCULOSKELETAL: Extremities without clubbing, cyanosis, or edema. No obvious deformities. Full range of motion of the upper and lower extremities bilaterally. 2+ pulses bilaterally. NEUROLOGICAL: Awake and alert. No obvious cranial nerve deficits. Motor grossly within normal limits. Five out of 5 muscle strength in the arms and legs. Normal speech. PSYCHIATRIC: Altered mood and affect; insight and judgment unclear Data Data Last Documented VS Vital Signs Date Time Temp Pulse Resp B/P (MAP) Pulse Ox O2 Delivery O2 Flow Rate FiO2 09/09/17 10:35 98.2 75 16 115/71 (86) 98 Orders Orders Complete Blood Count With Diff (09/09/17 11:12) Comprehensive Metabolic Panel (09/09/17 11:12) Thyroid Stimulating Hormone (09/09/17 11:12) Urinalysis - C+S If Indicated (09/09/17 11:12) Psych Screen (09/09/17 11:12) Drug Screen, Random Urine (09/09/17 11:12) Alcohol (Ethanol) (09/09/17 11:12) Ct Brain W/O Iv Contrast(Rout) (09/09/17 ) Trileptal (Oxycarbazapine) (09/09/17 11:30) ^ Sitter (09/09/17 12:49) Labs Laboratory Tests Test 09/09/17 11:15 09/09/17 11:27 09/09/17 12:12 Blood Urea Nitrogen 12 MG/DL Creatinine 0.73 MG/DL Random Glucose 99 MG/DL Total Protein 6.5 GM/DL Albumin 3.6 GM/DL Calcium Level 8.3 MG/DL Alkaline Phosphatase 65 U/L Aspartate Amino Transf (AST/SGOT) 23 U/L Alanine Aminotransferase (ALT/SGPT) 42 U/L Total Bilirubin 0.4 MG/DL Sodium Level 140 MEQ/L Potassium Level 4.1 MEQ/L Chloride Level 103 MEQ/L Carbon Dioxide Level 27.3 MEQ/L Anion Gap 10 MEQ/L Estimat Glomerular Filtration Rate 121 ML/MIN Thyroid Stimulating Hormone 3rd Gen 1.610 uIU/ML Ethyl Alcohol Level LESS THAN 3 MG/DL White Blood Count 9.3 TH/MM3 Red Blood Count 4.45 MIL/MM3 Hemoglobin 14.2 GM/DL Hematocrit 41.1 % Mean Corpuscular Volume 92.3 FL Mean Corpuscular Hemoglobin 31.9 PG Mean Corpuscular Hemoglobin Concent 34.5 % Red Cell Distribution Width 13.4 % Platelet Count 180 TH/MM3 Mean Platelet Volume 7.7 FL Neutrophils (%) (Auto) 91.9 % Lymphocytes (%) (Auto) 5.9 % Monocytes (%) (Auto) 2.0 % Eosinophils (%) (Auto) 0.0 % Basophils (%) (Auto) 0.2 % Neutrophils # (Auto) 8.5 TH/MM3 Lymphocytes # (Auto) 0.6 TH/MM3 Monocytes # (Auto) 0.2 TH/MM3 Eosinophils # (Auto) 0.0 TH/MM3 Basophils # (Auto) 0.0 TH/MM3 CBC Comment DIFF FINAL Differential Comment MDM Medical Decision Making Medical Screen Exam Complete: Yes Emergency Medical Condition: Yes Medical Record Reviewed: Yes Interpretation(s) CBC & BMP Diagram 09/09/17 11:15 Total Protein 6.5, Albumin 3.6, Calcium Level 8.3 L, Alkaline Phosphatase 65, Aspartate Amino Transf (AST/SGOT) 23, Alanine Aminotransferase (ALT/SGPT) 42, Total Bilirubin 0.4 09/09/17 11:27 alcohol WNL Last Impressions Head CT 09/09/17 0000 Signed Impressions: Service Date/Time: Saturday, September 09, 2017 11:42 - CONCLUSION: Large heterogeneous intra-axial mass centered in the left frontal lobe again seen with some decrease in left right midline shift. No evidence of acute hemorrhage. Daniel Tabares MD Differential Diagnosis Depression versus suicidal ideation versus anxiety versus adjustment disorder versus mood disorder versus bipolar disorder versus schizophrenia versus paranoid disorder versus psychosis versus substance abuse versus alcohol abuse versus alcohol induced psychosis versus homicidality addition versus cutting versus personality disorder versus encephalopathy versus mass versus seizures Narrative Course 37-year-old male that presents to the ED for evaluation of Jain act. Patient was properly examined and was found to have signs and symptoms of unclear etiology but likely secondary to his medical condition. Patient unfortunately has some nonoperative and very poor prognosis for a mass to his brain that is causing him to be altered and causing aggression and anxiety. Patient was admitted secondary to this a few weeks ago and was sent home with palliative care. Patient has been doing palliative care but apparently has progressively getting worse with his aggression and apparently almost hurt to his mother. Patient was Jain acted by the physician of the palliative care. Labs and imaging were essentially unremarkable at time for the known tumor. Case was discussed with my attending Dr. Brannon who recommends admission to medicine for psychiatric evaluation. Spoke with [facility], Dr Pompa stated that they preferred that hospice get involved as patient is a hospice patient from here. Hospice Dr. Braun recommends the patient be evaluated by psychiatry first and if psychiatry does not admit then hospice can be made involve if needed. My attending Dr Brannon has been aware of findings. Will await psych eval. Patient medically cleared. Diagnosis Primary Impression: Encephalopathy Additional Impression: Aggression Branden Witt Sep 09, 2017 11:33
[2017-09-09 11:41] LABS: AUTOMATED NEUTROPHIL # 8.5 TH/MM3 (1.8-7.7); BASOPHIL % 0.2 % (0.0-2.0); HEMATOCRIT 41.1 % (39.0-51.0); HEMOGLOBIN 14.2 GM/DL (13.0-17.0); LYMPH % 5.9 % (9.0-44.0); LYMPHOCYTE # 0.6 TH/MM3 (1.0-4.8); MEAN CELL VOLUME 92.3 FL (80.0-100.0); MEAN CORPUSCULAR HEMOGLOBIN 31.9 PG (27.0-34.0); MEAN CORPUSCULAR HGB CONC 34.5 % (32.0-36.0); MEAN PLATELET VOLUME 7.7 FL (7.0-11.0); MONOCYTE # 0.2 TH/MM3 (0-0.9); NEUT % 91.9 % (16.0-70.0); PLATELET COUNT 180 TH/MM3 (150-450); RED BLOOD COUNT 4.45 MIL/MM3 (4.50-5.90); RED CELL DISTRIBUTION WIDTH 13.4 % (11.6-17.2); WHITE BLOOD COUNT 9.3 TH/MM3 (4.0-11.0)
[2017-09-09] MEDS ORDERED: TYLE325T PO (11:50)
[2017-09-09] MEDS ORDERED: DEXA4TAB PO (11:50)
[2017-09-09] MEDS ORDERED: HALO2TAB PO ×2 (11:50)
[2017-09-09] MEDS ORDERED: HYDR4TAB PO (11:50)
[2017-09-09] MEDS ORDERED: IPRASOL INH (11:50)
[2017-09-09] MEDS ORDERED: HALO1TAB PO (11:50)
[2017-09-09] MEDS ORDERED: HYDR2TAB PO (11:50)
[2017-09-09] MEDS ORDERED: LORA2TAB7 PO (11:50)
[2017-09-09] MEDS ORDERED: POLY3350 PO (11:50)
[2017-09-09] MEDS ORDERED: BISA10SU3 RECTAL (11:50)
[2017-09-09] MEDS ORDERED: SENN8.6T81 PO (11:50)
[2017-09-09] MEDS ORDERED: OMEP20TA93 PO (11:50)
--- NOTE | 2017-09-09 12:02 | RADRPT ---
EXAM DATE/TIME: 09/09/2017 11:42 [facility] COMPARISON: CT BRAIN W/O CONTRAST, August 25, 2017, 17:26. INDICATIONS : Evaluate brain tumor RADIATION DOSE: 56.35 CTDIvol (mGy) MEDICAL HISTORY : Glioblastoma. Seizures. SURGICAL HISTORY : Craniotomy. ENCOUNTER: Initial ACUITY: 1 day PAIN SCALE: 0/10 LOCATION: cranial TECHNIQUE: Multiple contiguous axial images were obtained of the head. Using automated exposure control and adj ustment of the mA and/or kV according to patient size, radiation dose was kept as low as reasonably a chievable to obtain optimal diagnostic quality images. DICOM format image data is available electro nically for review and comparison. FINDINGS: CEREBRUM: Large intra-axial mass is again identified, centered in the left frontal lobe. Today it measures appr oximately 7.6 x 5.6 cm compared to 8.3 x 5.2 cm on the prior study of 08/25/2017. Left right midline sh ift measures 1.6 cm compared to 2.1 cm on the prior study. There is again effacement of the left late ral ventricle anterior horn. Associated vasogenic edema is again seen. Size of the ventricles is very similar to the prior study. No evidence of acute hemorrhage or extra-axial fluid collection. POSTERIOR FOSSA: The cerebellum and brainstem are intact. The 4th ventricle is midline. The cerebellopontine angle i s unremarkable. EXTRACRANIAL: The visualized portion of the orbits is intact. SKULL: The calvaria is intact. No evidence of skull fracture. CONCLUSION: Large heterogeneous intra-axial mass centered in the left frontal lobe again seen with some decrease in left right midline shift. No evidence of acute hemorrhage. Daniel Tabares MD on September 09, 2017 at 11:56 Board Certified Radiologist. This report was verified electronically.
[2017-09-09 12:11] LABS: ALKALINE PHOSPHATASE 65 U/L (45-117); TOTAL BILIRUBIN ADULT 0.4 MG/DL (0.2-1.0); TOTAL PROTEIN 6.5 GM/DL (6.4-8.2)
[2017-09-09 12:19] LABS: ALBUMIN 3.6 GM/DL (3.4-5.0); ALT (GPT) 42 U/L (12-78); AST (GOT) 23 U/L (15-37); BICARBONATE 27.3 MEQ/L (21.0-32.0); BLOOD UREA NITROGEN 12 MG/DL (7-18); CALCIUM 8.3 MG/DL (8.5-10.1); CHLORIDE 103 MEQ/L (98-107); CREATININE 0.73 MG/DL (0.60-1.30); GLOMERULAR FILTRATION RATE 121 ML/MIN (>89); GLUCOSE,RANDOM 99 MG/DL (74-106); SODIUM (NA) 140 MEQ/L (136-145)
[2017-09-09] MEDS ORDERED: LORazepam 2 MG/ML VIAL IV PUSH ONE ×2 (14:00→15:00)
[2017-09-09 14:40] LABS: MUCUS URINE FEW /lpf (OCC)
[2017-09-09 14:46] LABS: BILIRUBIN, URINE NEG (NEG); BLOOD, URINE NEG (NEG); GLUCOSE,URINE NEG (NEG); KETONE, URINE NEG (NEG); NITRITE,URINE NEG (NEG); URINE COLOR LIGHT-YELLOW (YELLW/STRAW); URINE LEUKOCYTE ESTERASE NEG (NEG)
[2017-09-09] MEDS ORDERED: HALOPERIDOL LACTATE 5 MG/ML AMP IM ONE (15:00)
--- NOTE | 2017-09-09 15:26 | PD ---
History of Present Illness Chief Complaint: Psychiatric Symptoms Time Seen by Provider: 14:20 Travel History International Travel<30 Days: No Contact w/Intl Traveler<30days: No Known affected area: No Legal Status Legal Status: Jain Act Jain Act Signed By: Cristobal Act Comment: Dr. Stephenie Braun History of Present Illness: History of Present Illness HPI 37-year-old, single, male with no previous psychiatric history, medical history significant for diffuse astrocytoma w resection and radiation in 2013, who was hospitalized on 08/25/2017 for increase in seizures with diagnosis of increase in brain mass which was deemed inoperable. Patient was then referred to hospice care and was living at home with his parents. Over the past several days there has been increase in agitation, combativeness, threatening behavior, refusing to take meds. It is alleged that he almost broke his mother's arm. The patient was then transferred to a hospice care facility and was placed under a Jain act by Dr. Braun due to increase in agitation, threatening behavior and refusal of medication. A psychiatric screening was ordered to determine if the patient would be a candidate for admission to our medical psychiatric unit to adjust medication that would help with managing aggressive behavior. Patient is seen in Main ED. He is in restraints due to his attempted elopement from the emergency department. Patient is awake. He does have expressive and comprehensive aphasia so limited clinical information is obtained.. He does make an effort to answer some of my questions. He gestures towards his restraints when asked why he was upset. EMR is reviewed. No previous contact with [facility] psychiatry Department. Labs have been ordered by ED. Toxicology is pending but patient does not have access or means of obtaining illegal substances. No evidence of UTI. Trileptal level is pending. I spoke with Dr. Braun, hospice physician who signed the Jain act at [phone]. He reports that the patient could not be managed at hospice facility due to his threatening and aggressive behavior and that this morning he threatened to hurt staff when they attempted to give him medication. It is his recommendation that after stabilization the patient be transferred back to the hospice facility. PFSH Past Medical History Anxiety: Yes Depression: Yes Cancer: Yes (glioblastoma) Cardiovascular Problems: No Diabetes: No Diminished Hearing: Yes Endocrine: No Genitourinary: No Hepatitis: No Hiatal Hernia: No Hypertension: No Immune Disorder: No Medical other: No Musculoskeletal: Yes (two knee surgeries in right knee) Neurologic: Yes (seizures occ in the morning, partial,difficulty with balance ) Psychiatric: No Reproductive: No Respiratory: No Immunizations Current: Yes Seizures: Yes Thyroid Disease: No Tetanus Vaccination: Unknown Past Surgical History Abdominal Surgery: No AICD: No Body Medical Devices: plates in place for crani,metal in r leg Cardiac Surgery: No Ear Surgery: No Eye Surgery: No Joint Replacement: No Neurologic Surgery: Yes (craniotomy with partial resection ) Oral Surgery: No Pacemaker: No Thoracic Surgery: No Other Surgery: Yes (two knee surgeries, melanoma skin cancer removed) Psychiatric History Psychiatric History Hx Psychiatric Treatment: None as per records History of Inpatient Treatment: No Guns or firearms in home: No Social History As per documentation patient is single and had been living at home with his parents. Hx Alcohol Use: No Hx Tobacco Use: No Hx Substance Use: No Hx of Substance Use Treatment: No Family Psychiatric History Unknown Allergies-Medications (Allergen,Severity, Reaction): Coded Allergies: *MDRO Multi-Drug Resistant Organism (Unverified Adverse Reaction, Unknown , 08/25/17) pt states had mrsa infection under arm from work exposed years ago Reported Meds & Prescriptions Reported Meds & Active Scripts Active Reported Sennosides 8.6 Mg Tab 1-2 Tab PO BID PRN Polyethylene Glycol 3350 17 Gram/Dose Pow Omeprazole 20 Mg Tab 20 Mg PO DAILY Duoneb (Ipratropium-Albuterol Neb) 0.5-2.5 Mg/3 Ml Neb 1 Nebule INH Q4HR NEB Hydromorphone (Hydromorphone HCl) 4 Mg Tab 4 Mg PO Q4H PRN Hydromorphone (Hydromorphone HCl) 2 Mg Tab 2 Mg PO Q4H PRN Lorazepam 2 Mg Tab 2 Mg PO Q6H PRN Dexamethasone 4 Mg Tab 4 Mg PO Q6HR Haloperidol 2 Mg Tab 4 Mg PO TID Haloperidol 2 Mg Tab 2 Mg PO BID Haloperidol 1 Mg Tab 1 Mg PO Q6HR Bisacodyl Supp (Bisacodyl) 10 Mg Supp 10 Mg RECTAL DAILY PRN Tylenol (Acetaminophen) 325 Mg Tab 650 Mg PO Q4H Onfi (Clobazam) 20 Mg Tab 20 Mg Q12HR Oxcarbazepine 600 Mg Tab 900 Mg PO DAILY Oxcarbazepine 600 Mg Tab 600 Mg PO BID Review of Systems ROS Limitations: Clinical Condition Mental Status Examination Appearance: Appropriate Consciousness: Alert Orientation: Person (Did tell me his name was Onur) Motor Activity: Other (In bad) Speech: Hesitant, Other (Minimal responses) Language: Other (Diminish responses) Fund of Knowledge: Poor (Unable to evaluate) Attention and Concentration: Inadequate Memory: Impaired Mood: Angry (Appears angry) Affect: Flat Thought Process & Associations: Other (Unable to evaluate) Thought Content: Other (Unable to assess) Hallucination Type: Other (Does not appear internally stimulated) Delusion Type: Other (Unable to evaluate) Mental Status Exam Remarks Unable to complete full mental status exam due to clinical presentation. MDM Medical Decision Making Medical Record Reviewed: Yes Assessment/Plan 37-year-old, single, male with no previous psychiatric history, medical history significant for diffuse astrocytoma w resection and radiation in 2013, who was hospitalized on 08/25/2017 for increase in seizures with diagnosis of increase in brain mass which was deemed inoperable. Patient was then referred to hospice care and was living at home with his parents. Over the past several days there has been increase in agitation, combativeness, threatening behavior, refusing to take meds. It is alleged that he almost broke his mother's arm. The patient was then transferred to a hospice care facility and was placed under a Jain act by Dr. Braun due to increase in agitation, threatening behavior and refusal of medication. Case was discussed with psychiatrist grants and contracts assistant doctor Miguel Angel as well as with attending and ED provider Delvin Witt. I have communicated with Dr. Braun hospice MD regarding initial treatment plan including admission for stabilization of aggressive behaviors and medication adjustment. Patient will be admitted to medical psychiatric unit for further evaluation, stabilization, and for safety. Orders Orders Complete Blood Count With Diff (09/09/17 11:12) Comprehensive Metabolic Panel (09/09/17 11:12) Thyroid Stimulating Hormone (09/09/17 11:12) Urinalysis - C+S If Indicated (09/09/17 11:12) Psych Screen (09/09/17 11:12) Drug Screen, Random Urine (09/09/17 11:12) Alcohol (Ethanol) (09/09/17 11:12) Ct Brain W/O Iv Contrast(Rout) (09/09/17 ) Trileptal (Oxycarbazapine) (09/09/17 11:30) ^ Sitter (09/09/17 12:49) Lorazepam Inj (Ativan Inj) (09/09/17 14:00) Lorazepam Inj (Ativan Inj) (09/09/17 15:00) Haloperidol Inj (Haldol Inj) (09/09/17 15:00) Results Vital Signs Date Time Temp Pulse Resp B/P (MAP) Pulse Ox O2 Delivery O2 Flow Rate FiO2 09/09/17 10:35 98.2 75 16 115/71 (86) 98 Laboratory Tests Test 09/09/17 11:15 09/09/17 11:27 09/09/17 12:12 09/09/17 14:20 Blood Urea Nitrogen 12 Creatinine 0.73 Random Glucose 99 Total Protein 6.5 Albumin 3.6 Calcium Level 8.3 Alkaline Phosphatase 65 Aspartate Amino Transf (AST/SGOT) 23 Alanine Aminotransferase (ALT/SGPT) 42 Total Bilirubin 0.4 Sodium Level 140 Potassium Level 4.1 Chloride Level 103 Carbon Dioxide Level 27.3 Anion Gap 10 Estimat Glomerular Filtration Rate 121 Thyroid Stimulating Hormone 3rd Gen 1.610 Ethyl Alcohol Level LESS THAN 3 White Blood Count 9.3 Red Blood Count 4.45 Hemoglobin 14.2 Hematocrit 41.1 Mean Corpuscular Volume 92.3 Mean Corpuscular Hemoglobin 31.9 Mean Corpuscular Hemoglobin Concent 34.5 Red Cell Distribution Width 13.4 Platelet Count 180 Mean Platelet Volume 7.7 Neutrophils (%) (Auto) 91.9 Lymphocytes (%) (Auto) 5.9 Monocytes (%) (Auto) 2.0 Eosinophils (%) (Auto) 0.0 Basophils (%) (Auto) 0.2 Neutrophils # (Auto) 8.5 Lymphocytes # (Auto) 0.6 Monocytes # (Auto) 0.2 Eosinophils # (Auto) 0.0 Basophils # (Auto) 0.0 CBC Comment DIFF FINAL Differential Comment Urine Color LIGHT-YELLOW Urine Turbidity HAZY Urine pH 8.0 Urine Specific [place] 1.013 Urine Protein NEG Urine Glucose (UA) NEG Urine Ketones NEG Urine Occult Blood NEG Urine Nitrite NEG Urine Bilirubin NEG Urine Urobilinogen LESS THAN 2.0 Urine Leukocyte Esterase NEG Urine WBC 1 Urine Mucus FEW Microscopic Urinalysis Comment CULT NOT INDICATED Diagnosis Primary Impression: Encephalopathy Additional Impression: 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
[2017-09-09] MEDS: RESP: ALBUTEROL 2.5 MG/IPRATROPIUM 0.5 MG NEB (SCH) INH ×2 (16:00→20:00)
[2017-09-09] MEDS ORDERED: ALUMINUM/MAGNESIUM/SIMETH 30 ML CUP PO PRN (16:00)
[2017-09-09] MEDS ORDERED: MAGNESIUM HYDROXIDE SUSP 30 ML CUP PO PRN (16:00)
[2017-09-09] MEDS ORDERED: ACETAMINOPHEN 325 MG TAB PO PRN (16:00)
[2017-09-09 18:02] VITALS: BP 112/64; PULSE 99; RESP 16; O2SAT 96
[2017-09-09 18:59] VITALS: BP 123/71; PULSE 77; RESP 16; TEMP 98.5; O2SAT 97
[2017-09-09] MEDS: DEXAMETHASONE 4 MG TAB PO SCH ×2 (19:12→23:32)
[2017-09-09] MEDS: CLOBAZAM 20 MG PO SCH (22:00)
[2017-09-09] MEDS: OXcarbazepine 600 MG TAB PO SCH (23:32)
[2017-09-10] MEDS: RESP: ALBUTEROL 2.5 MG/IPRATROPIUM 0.5 MG NEB (SCH) INH ×7 (04:00→23:54)
[2017-09-10 05:10] VITALS: BP 117/56; PULSE 68; RESP 17; TEMP 97.8; O2SAT 97
[2017-09-10] MEDS: DEXAMETHASONE 4 MG TAB PO SCH ×3 (05:30→17:20)
[2017-09-10] MEDS: CLOBAZAM 20 MG PO SCH ×2 (08:32→21:46)
[2017-09-10] MEDS: PANTOPRAZOLE SOD 20 MG DELAYED RELEASE TAB PO SCH (08:32)
[2017-09-10] MEDS: OXcarbazepine 600 MG TAB PO SCH ×3 (08:35→22:37)
[2017-09-10] MEDS: OXcarbazepine 300 MG TAB PO SCH (09:00)
[2017-09-10] MEDS ORDERED: LORA1TAB12 PO (12:12)
--- NOTE | 2017-09-10 12:39 | HHI.HP ---
Provisional Diagnosis Admission Date Sep 09, 2017 at 15:58 [place]. 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 Express and informed consent means consent voluntarily given in writing, by a competent person, after sufficient explanation and disclosure of the subject matter involved to enable the person to make a knowing and willful decision without any element of force, fraud, deceit, duress, or other form of constraint or coercion. This person is 18 years of age or older, is not now known to be incompetent to consent to treatment with a guardian advocate, and does not have a health care surrogate or proxy currently making medical treatment decisions. I have found this person to be one of the following: [] Competent to provide express and informed consent, as defined above, for voluntary admission to this facility and is competent to provide express and informed consent for treatment. He/she has the consistent capacity to make well reasoned, willful, and knowing decisions concerning his or her medical or mental health treatment. The person fully and consistently understands the purpose of the admission for examination/placement and is fully capable of personally exercising all rights assured under [place]xxx] Incompetent to provide express and informed consent to voluntary admission , and this is incompetent to provide express and informed consent to treatment. The person must be transferred to involuntary status and a petition for a guardian advocate filed with the Circuit Court. [] Refusing to provide express and informed consent to voluntary admission but is competent to provide express and informed consent for treatment. The person must be discharged or transferred to involuntary status. Form shall be completed within 24 hours of a person's arrival at the receiving facility and filed in the clinical record of each person: 1. Admitted on a voluntary basis 2. Permitted to provide express and informed consent to his/her own treatment 3. Allowed to transfer from involuntary to voluntary status 4. Prior to permitting a person to consent to his or her own treatment after having been previously found incompetent to consent to treatment. 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 Patient was found lying hospital bed but at times noted to be pacing on the unit. As per chart patient had required ETO due to aggressive behavior prior to being transferred to the inpatient unit. Patient states that he had moved into a new place, when asked about his medications he states that he oversees his medications. Patient reports his mood being "good" but also reports feeling down but was not able to elaborate but states that the Haldol has been helpful. Patient reports no change in energy but did noted decrease in appetite , denying any perceptual disturbances or paranoid ideations. Patient states that he feels safe where he lives denying any suicidal homicidal ideations. When asked about circumstances of brought to the hospital, specifically his aggressive behavior at home patient states he does not recall. Patient later was noted to be ambulating on the unit and laid himself on the floor and appeared to what I have been seizure activity but was helped back to his room and later evaluated by hospitalist. Patient is a poor historian and unable to provide adequate history. Past psychiatric history: Denies any previous psychiatric diagnoses, hospitalizations, suicide attempts, or self-injurious behavior. Substance use history: Denies Past medical history: Astrocytoma 2014 status post resection/radiation, currently with recurrence. Allergies: Denies Social history: Recently domiciled with parents with hospice care. Review of Systems Except as stated in HPI: all other systems reviewed are Neg Past Psych History Violence risk - others (6 mos) Elevated due to recent aggressive behavior Violence risk - self (6 mos) Low Substance Abuse History Drugs/Alcohol past 12 months Denies Past Family Social History Coded Allergies: *MDRO Multi-Drug Resistant Organism (Unverified Adverse Reaction, Unknown , 08/25/17) pt states had mrsa infection under arm from work exposed years ago Reported Medications Lorazepam (Lorazepam) 2 Mg Tab, 2 MG PO Q6HR, TAB 0 Refills 09/10/17 Lorazepam (Lorazepam) 1 Mg Tab, 1 MG PO Q4H Y for MILD ANXIETY OR AGITATION, TAB 0 Refills 09/10/17 Sennosides (Sennosides) 8.6 Mg Tab, 1-2 TAB PO BID Y for CONSTIPATION, TAB 0 Refills 09/09/17 Polyethylene Glycol 3350 (Polyethylene Glycol 3350) 17 Gram/Dose Pow, PO DAILY Y for CONSTIPATION 09/09/17 Omeprazole (Omeprazole) 20 Mg Tab, 20 MG PO DAILY, #30 TAB 0 Refills 09/09/17 Ipratropium-Albuterol Neb (Duoneb) 0.5-2.5 Mg/3 Ml Neb, 1 NEBULE INH Q4HR NEB, # 120 NEBULE 0 Refills 09/09/17 Hydromorphone (Hydromorphone) 4 Mg Tab, 4 MG PO Q4H Y for PAIN, TAB 0 Refills 09/09/17 Hydromorphone (Hydromorphone) 2 Mg Tab, 2 MG PO Q4H Y for PAIN, TAB 0 Refills 09/09/17 Lorazepam (Lorazepam) 2 Mg Tab, 2 MG PO Q4HR Y for MODERATE TO SEVERE ANXIETY, TAB 0 Refills 09/09/17 Dexamethasone (Dexamethasone) 4 Mg Tab, 4 MG PO Q6HR, #120 TAB 0 Refills 09/09/17 Haloperidol (Haloperidol) 2 Mg Tab, 4 MG PO Q1H Y for MODERATE TO SEVERE ANXIETY , TAB 0 Refills 09/09/17 Haloperidol (Haloperidol) 2 Mg Tab, 2 MG PO Q1HR Y for MILD ANXIETY OR AGITATION , TAB 0 Refills 09/09/17 Haloperidol (Haloperidol) 1 Mg Tab, 1 MG PO Q6HR, TAB 0 Refills 09/09/17 Bisacodyl Supp (Bisacodyl Supp) 10 Mg Supp, 10 MG RECTAL DAILY Y for CONSTIPATION, SUPP 0 Refills 09/09/17 Acetaminophen (Tylenol) 325 Mg Tab, 650 MG PO Q4H Y for FEVER, TAB 0 Refills 09/09/17 Clobazam (Onfi) 20 Mg Tab, 20 MG Q12HR, TAB 08/25/17 Oxcarbazepine (Oxcarbazepine) 600 Mg Tab, 900 MG PO DAILY for Seizure Control, # 30 TAB 0 Refills 08/25/17 Oxcarbazepine (Oxcarbazepine) 600 Mg Tab, 600 MG PO BID for Seizure Control, # 60 TAB 0 Refills GIVE AT 3PM AND 9PM 08/25/17 Discontinued Reported Medications Eszopiclone (Lunesta) 1 Mg Tab, 1 MG PO HS Y for INSOMNIA, TAB 0 Refills 08/25/17 Lorazepam (Lorazepam) 1 Mg Tab, 1 MG PO Q6H Y for ANXIETY, TAB 0 Refills 08/25/17 Discontinued Scripts Dexamethasone (Dexamethasone) 4 Mg Tab, 4 MG PO Q6HR Y for edema for 30 Days, # 120 TAB 0 Refills Prov:Shweta Zuleta MD 08/28/17 Current Medications Medications (Trade) Dose Ordered Sig/Raghav Route Start Time Stop Time Status Last Admin (Tylenol) 650 mg Q4H PRN PO 09/09/17 16:00 (Milk Of Magnesia Liq) 30 ml DAILY PRN PO 09/09/17 16:00 (Mag-Al Plus Susp Liq) 30 ml Q6H PRN PO 09/09/17 16:00 (Decadron) 4 mg Q6HR PO 09/09/17 18:00 09/10/17 05:30 (Duoneb Neb) 1 ampule Q4HR NEB INH 09/09/17 16:00 (Trileptal) 600 mg BID PO 09/09/17 21:00 09/10/17 08:35 (Trileptal) 900 mg DAILY PO 09/10/17 09:00 (Protonix) 20 mg DAILY PO 09/10/17 09:00 09/10/17 08:32 Patient Own Medication PT OWN MED: ONFI 20... BID PO 09/09/17 22:00 09/10/17 08:32 (Haldol) 2 mg BID PO 09/10/17 21:00 UNV Social History Recently domiciled with parents with hospice care. Patient's Strengths (min. 2) Verbal and communicative Physical Exam Patient not noted to be acute distress but is noted to have occasional generalized twitching during interview but was able to maintain alertness during examination, no gross motor abnormalities, no signs of EPS, no psychomotor agitation or retardation. Vital Signs Vital Signs Date Time Temp Pulse Resp B/P (MAP) Pulse Ox O2 Delivery O2 Flow Rate FiO2 09/10/17 05:10 97.8 68 17 117/56 (76) 97 09/09/17 18:02 Room Air I/O 09/10/17 09/10/17 09/11/17 08:00 16:00 00:00 Intake Total 360 ml Balance 360 ml Lab Results Labs reviewed Test 09/09/17 14:20 Urine Color LIGHT-YELLOW Urine Turbidity HAZY Urine pH 8.0 Urine Specific [place] 1.013 Urine Protein NEG mg/dL Urine Glucose (UA) NEG mg/dL Urine Ketones NEG mg/dL Urine Occult Blood NEG Urine Nitrite NEG Urine Bilirubin NEG Urine Urobilinogen LESS THAN 2.0 MG/DL Urine Leukocyte Esterase NEG Urine WBC 1 /hpf Urine Mucus FEW /lpf Microscopic Urinalysis Comment CULT NOT INDICATED Urine Opiates Screen NEG Urine Barbiturates Screen NEG Urine Amphetamines Screen NEG Urine Benzodiazepines Screen POS Urine Cocaine Screen NEG Urine Cannabinoids Screen POS Mental Status Examination Appearance: Appropriate Consciousness: Alert Orientation: Person (Did tell me his name was Onur) Motor Activity: Other (In bad) Speech: Hesitant, Other (Minimal responses) Language: Other (Diminish responses) Fund of Knowledge: Poor (Unable to evaluate) Attention and Concentration: Inadequate Memory: Impaired Mood: Other ("Okay") Affect: Flat Thought Process & Associations: Other ([place]) Thought Content: Other (Unable to assess as patient with limited responses) Hallucination Type: None, Other (Does not appear internally stimulated) Delusion Type: None Suicidal Ideation: No Suicidal Plan: No Suicidal Intention: No Homicidal Ideation: No Homicidal Plan: No Homicidal Intention: No Insight: Poor Judgment: Poor Assessment & Plan Problem List: (1) Major neurocognitive disorder, due to another medical condition, with behavioral disturbance, moderate ICD Codes: F02.81 - Dementia in other diseases classified elsewhere with behavioral disturbance Assessment & Plan Estimated LOS: 3-5 days. Patient is a 37-year-old man, single, domiciled with parents, recently taken to Hospital Center after patient was noted to have reported aggressive behavior toward mother which he was then put under Jain act and admitted to the inpatient psychiatry unit for further evaluation and management. Patient will be started on haloperidol 2 mg p.o. twice daily, patient will continue medications for chronic medical illnesses. Hospitalist consult pending, hospice consult pending. Patient's mother requesting involvement with [facility]. Patient's mother will serve as health care surrogate and guardian advocate and consented to all psychiatric medications as stated above. Continue to monitor mood and behavior. Petition for involuntary hospitalization started, second opinion requested. Discharge planning in progress. Discharge Planning Patient return back to his residence when psychiatrically stable. Dajuan Tillman MD Sep 10, 2017 12:39
--- NOTE | 2017-09-10 13:02 | PD.CONS ---
HPI Service [facility] Hospitalists Consult Requested By Primary Care Physician Stephenie Braun MD Diagnoses: History of Present Illness History from psychiatry team, review of medical records. Patient is a young unfortunate gentleman. He is not talking at all or given any history at all on my interview. He denies every symptoms when asked by shaking his head. He was noted to be walking around in bed psychiatry unit with a nursing home assistant at his side. Gait was quite steady. He was recently admitted from our hospital from August 25, 2017 to August 28, 2017. At that time, he was managed for WHO grade 2 astrocytoma of the brain. He has had prior treatment for astrocytoma with craniotomy and radiation therapy. However his condition worsened 6 weeks prior to admission with worsening ataxia , slurred speech, right facial droop. MRI done during that admission showed a new large extra-axial mass in the left frontal and middle cranial fossa. Records, patient initially had seizures at the end of 2013 and was found to have a large left frontoparietal mass. He underwent partial resection which showed astrocytoma grade 2. He was at [facility] for evaluation and also had radiation therapy with Dr. chandler here. He did not pursue concurrent radiosensitizing chemotherapy. He then presented in August 2017 to us with seizure. His condition worsened 6 weeks prior to August 25, 2017 admission with worsening ataxia, slurred speech, right facial droop. The CT done at that time showed a large 8.3 x 5.2 cm mass in the left frontoparietal area with significant mass-effect. There is left to right shift of 2 cm with hydrocephalus. MRI also showed septal subfalcine and uncal herniation. MRI done during that admission showed a new large extra-axial mass in the left frontal and middle cranial fossa. Patient was discharged to home hospice initially. He was then transferred to hospice care center yesterday or so. Apparently, he was more and more agitated and threatening staff at the care center. His mom actually found him at the care center with his bags packed and she decided to bring him to home. According to her, he was Jain acted by hospice doctors and ambulance and police were sent to her home to take him yesterday. While at psychiatry unit, patient was quite calm for most part. However nursing staff reported that earlier this morning, he was walking around in the unit and somehow sat down on the floor. He looked unresponsive to them and he was also shaking. They believed that he had seizures. Within a minute or so, he was back to his normal and was seen walking around again. Medical team was consulted because of his comorbidities and seizures. Patient's mother also fired [facility] hospice service today and requested for [facility] to be the hospice. This is related to me by the psychiatrist and the psychiatry nurse. Review of Systems ROS Limitations: Altered Mental Status, Poor Historian Past Family Social History Allergies: Coded Allergies: *MDRO Multi-Drug Resistant Organism (Unverified Adverse Reaction, Unknown , 08/25/17) pt states had mrsa infection under arm from work exposed years ago Past Medical History Skin cancer removed from left chest. B12 deficiency [employer] astrocytoma Past Surgical History Excision of skin cancer from left clavicular area. Right knee arthroscopic surgery, twice. Craniotomy with resection of astrocytoma Removal of bone flap for infection Family History Per EMR: No significant family medical history. Patient has 1 child. Social History Per EMR: A smoker of a little bit more than half a pack per day for at least 17 years. Occasional alcohol. No illicit drug abuse. Physical Exam Vital Signs Vital Signs Date Time Temp Pulse Resp B/P (MAP) Pulse Ox O2 Delivery O2 Flow Rate FiO2 09/10/17 05:10 97.8 68 17 117/56 (76) 97 09/09/17 18:59 98.5 77 16 123/71 (88) 97 09/09/17 18:02 99 16 112/64 (80) 96 Room Air Physical Exam General: Thin young gentleman, walking around psychiatry unit. But easily gets tired and lies back down in his bed. Skin: No ecchymosis/rash. ENT: Unable to examine as patient would not follow commands. CVS: Heart rate is regular, no murmur appreciated. Lungs: Equal air entry. Decreased air entry bilaterally. Would not follow commands to have a deep inspiration. Poor inspiratory effort. Abdomen: Cachectic. Soft, nontender. Lower extremities: No calf asymmetry or edema. Muscle atrophy and cachexia present. Neuro: Awake. Possibly alert but not able to assess that as patient is not really answering questions. Walking around in the unit. Laboratory Laboratory Tests Test 09/09/17 14:20 Urine Color LIGHT-YELLOW Urine Turbidity HAZY Urine pH 8.0 Urine Specific [place] 1.013 Urine Protein NEG Urine Glucose (UA) NEG Urine Ketones NEG Urine Occult Blood NEG Urine Nitrite NEG Urine Bilirubin NEG Urine Urobilinogen LESS THAN 2.0 Urine Leukocyte Esterase NEG Urine WBC 1 Urine Mucus FEW Microscopic Urinalysis Comment CULT NOT INDICATED Urine Opiates Screen NEG Urine Barbiturates Screen NEG Urine Amphetamines Screen NEG Urine Benzodiazepines Screen POS Urine Cocaine Screen NEG Urine Cannabinoids Screen POS Result Diagram: 09/09/17 1127 09/09/17 1115 Imaging Last [address] 09/09/17 0000 Signed Impressions: Service Date/Time: Saturday, September 09, 2017 11:42 - CONCLUSION: Large heterogeneous intra-axial mass centered in the left frontal lobe again seen with some decrease in left right midline shift. No evidence of acute hemorrhage. Daniel Tabares MD Assessment and Plan Assessment and Plan Impression: Agitation/behavioral disturbance. Hospice patient. Large left frontal parietal mass secondary to grade 2 astrocytoma. With improved midline shift compared to prior imaging earlier this month. History of prior astrocytoma grade 2. Which was treated at that time with partial resection and radiation therapy. 2014. Seizures. Secondary to intracranial lesion as above. Plan: Patient is admitted under med psychiatry. Management of his agitation and behavior disturbance with antipsychotics per psychiatry. Seizure precautions. Continue one-to-one sitter. Patient's medications from hospice have been reviewed thoroughly with patient's nurse. His medications has been resumed. Patient's mother requested for [facility] hospice at this point. Therefore consults have been placed. Patient should be discharged to hospice after cleared by psychiatry. DVT prophylaxis with ambulation. Chemical prophylaxis is contraindicated due to intracranial lesions. Discussed Condition With Patient, her psychiatrist, psychiatry nurse, Nereida Pompa MD Sep 10, 2017 13:02
[2017-09-10] MEDS ORDERED: LORA2TAB7 PO (13:09)
[2017-09-10] MEDS ORDERED: BISACODYL 10 MG SUPP RECTAL PRN (14:00)
[2017-09-10] MEDS ORDERED: HYDROmorphone HCL 2 MG TAB PO PRN (14:00)
[2017-09-10] MEDS ORDERED: HALOPERIDOL LACTATE 5 MG/ML AMP ONE (15:19)
[2017-09-10] MEDS ORDERED: LORazepam 2 MG/ML VIAL ONE (15:19)
[2017-09-10] MEDS ORDERED: LORazepam 2 MG/ML VIAL IM ONE (15:30)
[2017-09-10] MEDS ORDERED: HALOPERIDOL LACTATE 5 MG/ML AMP IM ONE (15:30)
[2017-09-10] MEDS: LORazepam 2 MG TAB PO SCH (17:20)
[2017-09-10 17:25] LABS: BICARBONATE 29.8 MEQ/L (21.0-32.0); BLOOD UREA NITROGEN 13 MG/DL (7-18); CALCIUM 8.7 MG/DL (8.5-10.1); CHLORIDE 101 MEQ/L (98-107); CREATININE 0.76 MG/DL (0.60-1.30); GLOMERULAR FILTRATION RATE 115 ML/MIN (>89); GLUCOSE,RANDOM 98 MG/DL (74-106); SODIUM (NA) 139 MEQ/L (136-145)
[2017-09-10 17:26] LABS: CHOLESTEROL 155 MG/DL (120-200); TRIGLYCERIDES 75 MG/DL (42-150)
[2017-09-10 17:29] LABS: CHOLESTEROL/ HDL RATIO 1.89 RATIO; HDL CHOLESTEROL 81.6 MG/DL (40.0-60.0); LDL CHOLESTEROL 58 MG/DL (0-99)
[2017-09-10 17:57] VITALS: BP 122/61; PULSE 83; RESP 16; TEMP 98.2; O2SAT 97
[2017-09-10] MEDS ORDERED: CLOBAZAM 20 MG SCH (21:00)
[2017-09-10] MEDS ORDERED: [UNRECOGNIZED DRUG - OTHER] SCH (21:00)
[2017-09-10] MEDS ORDERED: OXcarbazepine 600 MG TAB PO SCH (21:00)
[2017-09-10] MEDS: HALOPERIDOL 2 MG TAB PO SCH (21:45)
[2017-09-10 22:10] LABS: HEMOGLOBIN A1C 4.9 % (4.3-6.0)
[2017-09-11] MEDS: RESP: ALBUTEROL 2.5 MG/IPRATROPIUM 0.5 MG NEB (SCH) INH ×4 (02:06→15:46)
[2017-09-11] MEDS: DEXAMETHASONE 4 MG TAB PO SCH ×3 (06:20→12:16)
[2017-09-11] MEDS: LORazepam 2 MG TAB PO SCH ×3 (06:20→12:16)
[2017-09-11] MEDS: CLOBAZAM 20 MG PO SCH (08:34)
[2017-09-11] MEDS: HALOPERIDOL 2 MG TAB PO SCH (08:34)
[2017-09-11] MEDS: PANTOPRAZOLE SOD 20 MG DELAYED RELEASE TAB PO SCH (08:34)
[2017-09-11] MEDS: OXcarbazepine 300 MG TAB PO SCH (08:34)
--- NOTE | 2017-09-11 11:20 | HHI.PR ---
Subjective Remarks Follow-up visit large left frontoparietal mass secondary to grade 2 astrocytoma , seizure. Patient seen and examined today. Reports he is doing okay. As per Center patient ate breakfast. No acute issues overnight. As per nurse, [facility] has been contacted and will see patient today. Plan for discharge to hospice [facility] today. Denies pain and discomfort. Denies SOB/ dyspnea. Denies chest pain, palpitations, headaches, dizziness. Objective Vitals Vital Signs Date Time Temp Pulse Resp B/P (MAP) Pulse Ox O2 Delivery O2 Flow Rate FiO2 09/10/17 17:57 98.2 83 16 122/61 (81) 97 I/O 09/10/17 09/10/17 09/10/17 09/11/17 09/11/17 09/11/17 06:59 14:59 22:59 06:59 14:59 22:59 Intake Total 720 ml 120 ml 240 ml 60 ml Balance 720 ml 120 ml 240 ml 60 ml Intake Oral 720 ml 120 ml 240 ml 60 ml # Voids 1 1 3 # Bowel Movements 1 Result Diagram: 09/09/17 1127 09/10/17 1615 Imaging Last Impressions Head CT 09/09/17 0000 Signed Impressions: Service Date/Time: Saturday, September 09, 2017 11:42 - CONCLUSION: Large heterogeneous intra-axial mass centered in the left frontal lobe again seen with some decrease in left right midline shift. No evidence of acute hemorrhage. Daniel Tabares MD Objective Remarks GENERAL: This is a thin, well-developed patient, in no apparent distress. SKIN: Warm and dry. HEENT: Normocephalic. Pupils equal round and reactive. Nose without bleeding. Airway patent. Oral candidiasis noted. NECK: Trachea midline. No JVD. Supple. CARDIOVASCULAR: Regular rate and rhythm without murmurs, gallops, or rubs. RESPIRATORY: Clear to auscultation. Breath sounds equal bilaterally. No wheezes , rales, or rhonchi. GASTROINTESTINAL: Abdomen soft, non-tender, nondistended. Bowel Sounds normoactive x4. MUSCULOSKELETAL: Extremities without clubbing, cyanosis, or edema. NEUROLOGICAL: Awake and alert. Oriented to time, place, person. No focal neuro deficit. Moves all extremities. Normal speech. A/P Assessment and Plan Agitation/behavioral disturbance. Hospice patient. Large left frontal parietal mass secondary to grade 2 astrocytoma. With improved midline shift compared to prior imaging earlier this month. History of prior astrocytoma grade 2. Which was treated at that time with partial resection and radiation therapy. 2013. Seizures. Secondary to intracranial lesion as above. Oral Shivani. Plan: Patient is admitted under med psychiatry. Management of his agitation and behavior disturbance with antipsychotics per psychiatry. Seizure precautions. No reported seizures overnight. Continue one-to-one sitter. Patient's medications from hospice have been reviewed thoroughly with patient's nurse. His medications has been resumed. Nystatin swish and swallow Patient's mother requested for [facility] hospice at this point. Patient should be discharged to hospice after cleared by psychiatry. Hospitalist Cleared for DC to hospice. Swati Matute Sep 11, 2017 11:20 am
[2017-09-11] MEDS ORDERED: HALO2TAB PO (12:22)
--- NOTE | 2017-09-11 12:23 | HHI.DS ---
Psychiatry Discharge Summary Inpatient Psychiatric care?: Yes Advance Directive: No Reason Not Provided: Due to Patient Condition Mental Health AdvanceDirective: No Health Care Proxy: Yes Admission Admission Date Sep 09, 2017 at 15:58 Admission Diagnosis: (1) Major neurocognitive disorder, due to another medical condition, with behavioral disturbance, moderate ICD Code: F02.81 - Dementia in other diseases classified elsewhere with behavioral disturbance Brief History Patient is a 37-year-old man, single, domiciled with parents, no formal past psychiatric history, no previous psychiatric admissions, suicide attempt or self-injurious behavior, with a past medical history significant for 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 Patient was found lying hospital bed but at times noted to be pacing on the unit. As per chart patient had required ETO due to aggressive behavior prior to being transferred to the inpatient unit. Patient states that he had moved into a new place, when asked about his medications he states that he oversees his medications. Patient reports his mood being "good" but also reports feeling down but was not able to elaborate but states that the Haldol has been helpful. Patient reports no change in energy but did noted decrease in appetite , denying any perceptual disturbances or paranoid ideations. Patient states that he feels safe where he lives denying any suicidal homicidal ideations. When asked about circumstances of brought to the hospital, specifically his aggressive behavior at home patient states he does not recall. Patient later was noted to be ambulating on the unit and laid himself on the floor and appeared to what I have been seizure activity but was helped back to his room and later evaluated by hospitalist. Patient is a poor historian and unable to provide adequate history. Past psychiatric history: Denies any previous psychiatric diagnoses, hospitalizations, suicide attempts, or self-injurious behavior. Substance use history: Denies Past medical history: Astrocytoma 2014 status post resection/radiation, currently with recurrence. Allergies: Denies Social history: Recently domiciled with parents with hospice care. 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 Patient prior to transfer to the inpatient unit had required ETO as well as restraints due to aggressive behavior in the ED. Upon transfer to the inpatient unit patient was continued on his medications for chronic medical illnesses and was started on Haldol 2 mg p.o. twice daily. Patient later in the day had become again agitated, spitting at staff, aggressive and again had required ETO of Haldol 5 mg IM/Ativan 1 mg IM. Patient was continued on one-to-one observation for safety and did not have any recurrence of any aggressive behavior was continued on treatment regimen. Hospitalist services, [facility], were consulted and will be overseeing the care of the patient upon discharge. Patient did not have any further behavioral disturbances. Patient continued to adhere to medications, cooperative with staff. Upon discharge patient stated feeling ok, stated feeling okay with returning back to his home with his mother; noted to be calm and cooperative with staff. He agreed to continuing medical recommendations, treatment and cooperate for continuity of care. Patient; denies SI, HI, AVH or delusions. Supportive psychotherapy provided. Suicide and violence risk assessment on day of discharge both suggest lower imminent risk, and the patient's level of function is adequate for planned level of outpatient hospice care. Patient has maximized benefit from this inpatient psychiatric hospital stay and to return to psychiatric emergency room for any concerning psychiatric symptoms. Patient agrees with plan. Results Blood Pressure 122 / 61 Vital Signs Date Time Temp Pulse Resp B/P (MAP) Pulse Ox O2 Delivery O2 Flow Rate FiO2 09/10/17 17:57 98.2 83 16 122/61 (81) 97 09/09/17 18:02 Room Air Laboratory Tests Test 09/09/17 11:15 09/09/17 11:27 09/09/17 12:12 09/09/17 14:20 Calcium Level 8.3 MG/DL (8.5-10.1) Red Blood Count 4.45 MIL/MM3 (4.50-5.90) Neutrophils (%) (Auto) 91.9 % (16.0-70.0) Lymphocytes (%) (Auto) 5.9 % (9.0-44.0) Neutrophils # (Auto) 8.5 TH/MM3 (1.8-7.7) Lymphocytes # (Auto) 0.6 TH/MM3 (1.0-4.8) Urine Turbidity HAZY (CLEAR) Urine Mucus FEW /lpf (OCC) Urine Benzodiazepines Screen POS (NEG) Urine Cannabinoids Screen POS (NEG) Test 09/10/17 16:15 HDL Cholesterol 81.6 MG/DL (40.0-60.0) Laboratory Results Test 09/10/17 16:15 Cholesterol Level 155 MG/DL (120-200) HDL Cholesterol 81.6 MG/DL (40.0-60.0) Hemoglobin A1c 4.9 % (4.3-6.0) LDL Cholesterol 58 MG/DL (0-99) Triglycerides Level 75 MG/DL (42-150) Summary of Procedures None Imaging Last Impressions Head CT 09/09/17 0000 Signed Impressions: Service Date/Time: Saturday, September 09, 2017 11:42 - CONCLUSION: Large heterogeneous intra-axial mass centered in the left frontal lobe again seen with some decrease in left right midline shift. No evidence of acute hemorrhage. Daniel Tabares MD Pending results at discharge: No Medications # of Antipsychotic meds at D/C: 1 Approp Antipsych med options 1 - Minimum of three failed multiple trials of monotherapy. 2 - Documented plan to taper to monotherapy due to previous use of multiple meds OR cross-taper in progress at D/C. 3 - Documentation of augmentation of Clozapine. 4 - Justification other than those listed in allowable values 1-3, document here : Discharge Discharge Date: Sep 11, 2017 Discharge Diagnosis: (1) Major neurocognitive disorder, due to another medical condition, with behavioral disturbance, moderate ICD Code: F02.81 - Dementia in other diseases classified elsewhere with behavioral disturbance Pt Condition on Discharge: Stable Discharge Disposition: Discharge Home Discharge Instructions Diet Instructions: As Tolerated, No Restrictions Activities you can perform: Regular-No Restrictions Discharge Time > 30 minutes Mental Status Examination Appearance: Appropriate Consciousness: Alert Orientation: Person (Did tell me his name was Onur) Motor Activity: Normal gait Speech: Hesitant, Slow Language: Other (Diminish responses) Fund of Knowledge: Poor (Unable to evaluate) Attention and Concentration: Inadequate Memory: Impaired Mood: Other ("Okay") Affect: Flat Thought Process & Associations: Other ([place]) Thought Content: Other (Unable to assess as patient with limited responses) Hallucination Type: None Delusion Type: None Suicidal Ideation: No Suicidal Plan: No Suicidal Intention: No Homicidal Ideation: No Homicidal Plan: No Homicidal Intention: No Insight: Poor Judgment: Poor Discharge/Advance Care Plan Health Problems: (1) Major neurocognitive disorder, due to another medical condition, with behavioral disturbance, moderate Goals to promote your health * To prevent worsening of your condition and complications * To maintain your health at the optimal level Directions to meet your goals Take your medications as prescribed Follow your dietary instruction Follow activity as directed Keep your appointments as scheduled Take your immunizations and boosters as scheduled If your symptoms worsen call your PCP, if no PCP go to Urgent Care Center or Emergency Room For 09/12 questions related to your inpatient stay or results of tests pending at discharge, please contact Dr. Dajuan Tillman at Smoking is Dangerous to Your Health. Avoid second hand smoking Dajuan Tillman MD Sep 11, 2017 12:23
[2017-09-11] MEDS ORDERED: NYSTATIN SUSP 500,000 U/5 ML CUP SWISH-SWAL SCH (13:00)
[2017-09-11] MEDS: OXcarbazepine 600 MG TAB PO SCH (14:53)
== END 2017-09-11 16:36 | disposition home or self-care (01) | DRG 886 ==
LOC: NEPE 10:26 → NEDA 15:58 → H4EA 18:15
PROVIDERS: ADMIT Student in an Organized Health Care Education/Training Program; ATTEND Student in an Organized Health Care Education/Training Program
DX: F91.8 Other conduct disorders (principal); B37.0 Candidal stomatitis; C71.9 Malignant neoplasm of brain, unspecified; F02.81 Dementia in other diseases classified elsewhere, unspecified severity, with behavioral disturbance; R56.9 Unspecified convulsions; R47.01 Aphasia; Z91.14 Patient's other noncompliance with medication regimen; H91.90 Unspecified hearing loss, unspecified ear; Z78.1 Physical restraint status; Z92.3 Personal history of irradiation; Z85.828 Personal history of other malignant neoplasm of skin; Z87.891 Personal history of nicotine dependence; Z51.5 Encounter for palliative care
CPT/HCPCS: 70450; 80048; 80053; 80061; 80183; 80307; 81001; 83036; 84443; 85025; 96374; J1630; J2060; J8540